=== PATIENT | female | born 1960 | race Caucasian/White ===

== ENCOUNTER 2016-12-01 12:16 | Emergency (ER) | payer OTHER ==
[~2016-12-01] VITALS: Ht 170.2 cm; Wt 77.1 kg
[2016-12-01 13:50] LABS: ABSOLUTE BASOPHIL COUNT 0.1 /CUMM (0.0-0.2); ABSOLUTE EOSINOPHIL COUNT 0.1 /CUMM (0.0-0.7); ABSOLUTE GRANULOCYTE CT 3.7 /CUMM (1.4-6.5); ABSOLUTE LYMPH COUNT 2.6 /CUMM (1.2-3.4); ABSOLUTE MONOCYTE COUNT 0.8 /CUMM (0.10-0.60); BASOPHIL % 0.7 % (0.0-2.0); EOSINOPHIL % 1.5 % (0-5); GRANULOCYTE % 50.2 % (42.2-75.2); HEMATOCRIT 47.8 % (37-47); MEAN CORPUSCULAR HGB CONC 32.7 G/DL (33.0-37.0); MEAN CORPUSCULAR VOLUME 91.8 FL (81.0-99.0); MEAN PLATELET VOLUME 7.3 FL (7.4-10.4); PLATELET COUNT 245 /CUMM (130-400); RBC DISTRIBUTION WIDTH 14.6 % (11.5-14.5); RED BLOOD CELL CT 5.21 /CUMM (4.20-5.40); WHITE BLOOD CELL COUNT 7.3 /CUMM (4.8-10.8)
--- NOTE | 2016-12-01 14:52 | RADIOLOGY REPORT ---
EXAMINATION: XR CHEST CLINICAL INFORMATION: Cough, wheezing and tachypnea. COMPARISON: None TECHNIQUE: 2 views of the chest were obtained. FINDINGS: Both lungs are fairly well-expanded and clear. The heart size and pulmonary vascularity is normal. No gross bony abnormality seen. IMPRESSION: Unremarkable chest exam.
[2016-12-01] MEDS ORDERED: ALBUTEROL2.5 MG/3 M IH (14:53)
[2016-12-01] MEDS ORDERED: VENTOLIN HFA18 GM IH (14:54)
[2016-12-01] MEDS ORDERED: FLOVENT HFA12 GM IH (14:55)
[2016-12-01] MEDS ORDERED: FOLGARD TABLET1 EACH PO (14:57)
--- NOTE | 2016-12-01 15:29 | ED GENERAL ADULT ---
History of Present Illness General Chief Complaint: Wheezing/Asthma Stated Complaint: ASTHMA Source: patient Exam Limitations: no limitations Vital Signs & Intake/Output Vital Signs & Intake/Output Vital Signs Date Time Temp Pulse Resp B/P B/P Pulse O2 O2 Flow FiO2 Mean Ox Delivery Rate 12/01 1755 80 18 144/88 98 12/01 1607 99 12/01 1532 98.1 79 36 136/71 100 Room Air 12/01 1333 96.4 84 28 130/74 99 Nasal 2.0L Cannula 12/01 1310 100 Nasal 2.0L Cannula 12/01 1245 99 Room Air 12/01 1218 96.5 72 18 126/87 98 Room Air Allergies Coded Allergies: No Known Allergies (12/01/16) Reconcile Medications Albuterol Sulfate 2.5 MG/3 ML (0.083 %) VIAL.NEB 2.5 MG IH 4 TIMES/DAY ASTHMA (Reported) Albuterol Sulfate (Ventolin Hfa) 90 MCG HFA.AER.AD 90 MCG IH 4XDP ASTHMA ( Reported) Fluticasone Propionate (Flovent Hfa) 220 MCG AER.W.ADAP 220 MCG IH 4XDP ASTHMA (Reported) Vit D3/Folic Acid/B2/B6/B12 (Folgard Tablet) 2,000-800 TABLET 1,000 MG PO DAILY VITAMIN (Reported) Triage Note: 55 Y/O FEMALE SENT BY PHYSICIAN [facility] FOR EVAL OF SOB/WHEEZING FOR 2-3 DAYS. PT STATES SHE WAS PLACED ON ANTIBIOTIC FOR SORE THROAT LAST WEEK; WOKE TODAY WITH WORSENING SOB. WHEEZING NOTED IN ALL CR, SAT 98% RA. PT REPORTS DRY COUGH. HAD PAOO NEB TX AT [facility] TODAY. Triage Nurses Notes Reviewed? yes HPI: 55 her old female the history of asthma presenting with shortness of breath and wheezing are sitting over the last 24 hours in the setting of preceding URI symptoms. Patient reports sore throat and nonproductive cough times 2-3 days. Denies fevers, rhinorrhea, nasal congestion, sick contacts. Recently seen at an urgent care with negative strep testing, however placed on empiric Augmentin until culture returns. Early on day 2 of Augmentin. Denies chest pain, lightheadedness, diaphoresis, nausea, vomiting. (GISELE LINARES,JAZMYN) Past History Travel History Traveled to [place] past 21 day No Medical History Any Pertinent Medical History? see below for history Neurological: NONE EENT: NONE Cardiovascular: NONE Respiratory: asthma Gastrointestinal: NONE Hepatic: NONE Renal: NONE Musculoskeletal: NONE Psychiatric: NONE Endocrine: NONE Blood Disorders: NONE Cancer(s): NONE SIZE TESTER/Reproductive: NONE Surgical History Surgical History: non-contributory Psychosocial History What is your primary language German Tobacco Use: Quit >30 days ago Family History Hx Contributory? No (JAZMYN JAQUEZ PA-C) Review of Systems Review of Systems Constitutional: Reports: no symptoms. EENTM: Reports: throat pain. Respiratory: Reports: cough, short of breath, wheezing. Denies: sputum production. Cardiovascular: Reports: no symptoms. GI: Reports: no symptoms. Genitourinary: Reports: no symptoms. Musculoskeletal: Reports: no symptoms. Neurological/Psychological: Reports: no symptoms. (JAZMYN JAQUEZ PA-C) Physical Exam Physical Exam General Appearance: well developed/nourished, anxious, moderate distress Head: atraumatic Ears, Nose, Throat: normal ENT inspection Respiratory: wheezing, there is diffuse wheezing throughout bilateral lung cr, with a prolonged expiratory phase, no hypoxia patient is satting 100% on room air, however tachypneic to mid 30s Cardiovascular: regular rate/rhythm, normal peripheral pulses Neurologic/Psych: awake, alert, oriented x 3 Skin: intact, normal color Core Measures ACS in differential dx? No CVA/TIA Diagnosis: No Severe Sepsis Present: No Septic Shock Present: No (JAZMYN JAQUEZ PA-C) Progress Differential Diagnoses I considered the following diagnoses in my evaluation of the patient: [Asthma exacerbation versus pneumonia versus bronchitis versus URI versus PE] Plan of Care: Orders Procedure Date/time Status BIPAP 12/01 1445 Active CONTINOUS NEBULIZER TX (1 HR) 12/01 1338 Complete THERAPIST ORDERS 12/01 1310 Complete PEAK FLOW MEASUREMENT (GEN) 12/01 1310 Complete MIXED VENOUS BLOOD GAS (GEN) 12/01 1256 Complete THROAT CULTURE W/QUICK STREP 12/01 1256 Active CBC WITHOUT DIFFERENTIAL 12/01 1256 Complete BASIC METABOLIC PANEL 12/01 1256 Complete Current Medications Sig/Stephen Start time Last Medication Dose Stop Time Status Admin Albuterol Sulfate 10 ML .[CONTINOUS] 12/01 1300 CAN (Proventil) Laboratory Tests 12/01/16 1310: Bicarbonate Actual 25, Mixed VBG pH 7.49 H, Mixed VBG pCO2 33 L, Mixed VBG O2 Saturation 38, Carboxyhemoglobin 0.9 L, O2 Concentration % 2L, O2 Delivery Method NC, Phlebotomy Draw Site VENOUS RAC 12/01/16 1306: Anion Gap 10, Estimated GFR > 60, BUN/Creatinine Ratio 23.3, Glucose 83, Calcium 9.4, CBC w Diff NO MAN DIFF REQ, RBC 5.21, MCV 91.8, MCH 30.0, RDW 14.6 H, MPV 7.3 L, Gran % 50.2, Lymphocytes % 36.3, Monocytes % 11.3 H, Eosinophils % 1.5, Basophils % 0.7, Absolute Granulocytes 3.7, Absolute Lymphocytes 2.6, Absolute Monocytes 0.8 H, Absolute Eosinophils 0.1, Absolute Basophils 0.1, PUBS MCHC 32.7 L Chest x-ray negative. Labs unremarkable. VBG shows normal pH with PCO2 33. Patient received continuous albuterol nebs at 10 mg per hour, 2 g of mag, 125 mg of Solu-Medrol. Wheezing has improved, patient still satting 100% on room air, tachypnea improved to 28-30. Will monitor and trial another albuterol treatment in 30 minutes. Plan to start BiPAP to admit if no improvement. Patient signed out to MADDY Berkowitz. (JAZMYN JAQUEZ PA-C) 12/01/2016 4:24:22 PM discussed the patient leave her x-ray lab results. Repeat evaluation lungs are clear to auscultation. Discussed with patient plan of care she's had Ativan before after having nervous breakdown but discussed with her plan of care we will give her a dose IV to see if that will attempt to help with her audible wheezing which appears to be more upper respiratory in nature case was discussed with Dr. Quiñones who agrees with plan Patient no longer wheezing after being medicated with Ativan 12/01/2016 5:50:23 PM patient is asking how much longer she needs to be here she reports a feeling improved will get oxygen ambulatory saturation as patient's O2 sats dropped immediately after being administered Ativan which she states she's had before she is currently 98% on room air Patient 98% walking on room air denies any shortness of breath she reports to feeling improved she has prednisone at home the patient was provided with name for government affairs specialist follow-up with return precautions were discussed patient relates she feels comfortable with plan. Patient has prescription for prednisone at home information is provided for follow-up with government affairs specialist (REECE MCCLOUD) Initial ED EKG: none (JAZMYN JAQUEZ PA-C) Departure Departure Disposition: STILL A PATIENT Condition: Stable Clinical Impression Primary Impression: Asthma exacerbation Departure Forms: Customer Survey General Discharge Information (JAZMYN JAQUEZ PA-C) Departure Time of Disposition: 1755 Additional Instructions: Take the prednisone that you were prescribed. Follow-up with your primary care physician as well as government affairs specialist dr walters this week, return to ER anytime sooner if any concerns. (REECE MCCLOUD) PA/SALES DEVELOPMENT ASSOCIATE Co-Sign Statement Statement: ED Attending supervision documentation- [X] I saw and evaluated the patient. I have also reviewed all the pertinent lab results and diagnostic results. I agree with the findings and the plan of care as documented in the PA's/SALES DEVELOPMENT ASSOCIATE's documentation. [] I have reviewed the ED Record and agree with the PA's/SALES DEVELOPMENT ASSOCIATE's documentation. [] Additions or exceptions (if any) to the PAs/SALES DEVELOPMENT ASSOCIATE's note and plan are summarized below: [] (SINDHU HAMMONDS,SERENITY Snyder) Critical Care Note Critical Care Note Critical Care Time: non-applicable (JAZMYN JAQUEZ PA-C) Critical Care Time: non-applicable (JAZMYN JAQUEZ PA-C)
[2016-12-01 17:55] VITALS: BP 144/88
== END 2016-12-01 18:15 ==
LOC: ERH 12:16
PROVIDERS: Physician Assistant
DX: J45.901 Unspecified asthma with (acute) exacerbation (principal); Z87.891 Personal history of nicotine dependence
CPT/HCPCS: 1263; 96374; 96375; J2930

== ENCOUNTER 2017-07-22 15:28 | Observation (INO) | payer OTHER ==
[~2017-07-22] VITALS: Ht 170.2 cm; Wt 71.7 kg
[~2017-07-22 15:28] MED LIST: ALBUTEROL2.5 MG/3 M IH; CYANOCOBAL1000 MCG/2 IM; DELTASONE20 MG PO; DOXYCYCLINE HY100 M4 PO; FLOVENT HFA12 GM IH; FOLGARD TABLET1 EACH PO; PREDNISONE10 M2 PO; TESSALON PERLE100 M1 PO; VENTOLIN HFA18 GM IH; VITAMIN B-121000 MC3 PO; VITAMIN D2000 UNIT PO; ZITHROMAX250 M2 PO
--- NOTE | 2017-07-22 16:54 | RADIOLOGY REPORT ---
EXAMINATION: XR CHEST CLINICAL INFORMATION: Asthma exacerbation rule out pneumonia. COMPARISON: Prior chest x-ray dated 07/17/2017. TECHNIQUE: Upright PA and lateral views of chest were obtained.. FINDINGS: The lung volumes are slightly decreased by comparison with the prior study with slight crowding of the central pulmonary structures. The lungs are clear bilaterally, with no focal areas of airspace opacification. The cardiomediastinal silhouette is not enlarged. There are no pleural effusions, there is no evidence of pneumothorax. Central pulmonary vasculature is within normal limits. The bony structures and overlying soft tissues are unremarkable. IMPRESSION: No acute cardiopulmonary findings. No significant interval change since the prior study dated 07/17/2017.
[2017-07-22 17:00] LABS: ABSOLUTE BASOPHIL COUNT 0 /CUMM (0.0-0.2); ABSOLUTE EOSINOPHIL COUNT 0 /CUMM (0.0-0.7); ABSOLUTE GRANULOCYTE CT 5.3 /CUMM (1.4-6.5); ABSOLUTE LYMPH COUNT 2.2 /CUMM (1.2-3.4); ABSOLUTE MONOCYTE COUNT 0.6 /CUMM (0.10-0.60); BASOPHIL % 0.1 % (0.0-2.0); EOSINOPHIL % 0 % (0-5); HEMATOCRIT 44.8 % (37-47); MEAN CORPUSCULAR HGB 30.4 PG (27.0-31.0); MEAN CORPUSCULAR VOLUME 91.8 FL (81.0-99.0); MEAN PLATELET VOLUME 6.9 FL (7.4-10.4); PLATELET COUNT 308 /CUMM (130-400); RBC DISTRIBUTION WIDTH 14.3 % (11.5-14.5); RED BLOOD CELL CT 4.88 /CUMM (4.20-5.40); WHITE BLOOD CELL COUNT 8.2 /CUMM (4.8-10.8)
[2017-07-22 17:04] LABS: GRANULOCYTE % 65.3 % (42.2-75.2)
--- NOTE | 2017-07-22 17:08 | ED DYSPNEA/ASTHMA COMPLAINT ---
History of Present Illness General Chief Complaint: Wheezing/Asthma Stated Complaint: "I HAVE ASTHMA" Source: patient, old records Exam Limitations: no limitations Vital Signs & Intake/Output Vital Signs & Intake/Output Vital Signs Date Time Temp Pulse Resp B/P B/P Pulse O2 O2 Flow FiO2 Mean Ox Delivery Rate 07/23 1029 Room Air Room Air 07/23 1029 96 Room Air Room Air 07/23 1006 98.4 63 20 142/69 96 Room Air 07/23 0821 97.5 65 20 155/76 98 Room Air 07/23 0636 97.9 65 18 136/71 100 Room Air / 0438 97.7 66 18 131/73 99 Room Air / 0056 97.9 64 18 126/71 100 Room Air 07/22 2320 97.5 73 20 140/86 97 Room Air 07/22 1846 96.0 72 22 137/76 98 Room Air 07/22 1610 99 02/05 1553 96.7 65 18 147/91 99 Room Air ED Intake and Output 07/23 0000 07/22 1200 Intake Total 0 Output Total 0 Balance 0 Intake, Oral 0 Output, Urine 0 Patient 158 lb Weight Weight Reported by Patient Measurement Method Allergies Coded Allergies: No Known Allergies (12/01/16) Reconcile Medications Albuterol Sulfate (Ventolin Hfa) 90 MCG HFA.AER.AD 90 MCG IH 4XDP ASTHMA ( Reported) Albuterol Sulfate 2.5 MG/3 ML (0.083 %) VIAL.NEB 2.5 MG IH 4 TIMES/DAY PRN ASTHMA (Reported) Azithromycin (Zithromax) 250 MG TABLET 1 DP PO AD bronchitis 2 the first day followed by 1 for days 2-5 Benzonatate (Tessalon Perle) 100 MG CAPSULE 1 CAP PO TID cough Cholecalciferol (Vitamin D3) (Vitamin D) (Unknown Strength) CAPSULE (Unknown Dose) PO DAILY SUPPLEMENT (Reported) Cyanocobalamin (Vitamin B-12) (Unknown Strength) TABLET (Unknown Dose) PO DAILY SUPPLEMENT (Reported) Cyanocobalamin (Vitamin B-12) (Cyanocobalamin Injection) 1,000 MCG/ML VIAL 1 ML IM Q30D SUPPLEMENT (Reported) Doxycycline Hyclate 100 MG TABLET 1 TAB PO BID bronchitis Prednisone (Deltasone) 20 MG TABLET 2 TAB PO ONCE DAILY BRONCHITIS Prednisone 10 MG TABLET 1 TAB PO DAILY bronchitis 4 tabs po x 3 days, 3 tabs po x 3 days, 2 tabs po x 3 days, 1 tab po x 3 days Prednisone (Deltasone) 20 MG TABLET 2 TAB PO DAILY bronchitis Triage Note: PT FROM HOME C/O WHEEZING/ASTHMA EXACERBATION. PT IN TRIAGE HAS AUDIBLE WHEEZING, SEEN AT [facility] ON SATURDAY AND TREATED WITH PREDNISONE X5 DAYS 40MG FOR BRONCHITIS. PT STATES SHE USED HER NEB TREATMENTS LAST NIGHT AND YESTERDAY ALONG WITH [facility] WITHOUT ANY RELIEF. PT IS 99% ON RA WITHOUT WORK OF BREATHING. Triage Nurses Notes Reviewed? yes Onset: Gradual Duration: day(s): Timing: recent history Severity: moderate HPI: 56-year-old female with history of asthma presents emergency department complaining of persistent cough, wheezing, shortness of breath x one week. Patient was seen and evaluated here on 07/17/17 for similar symptoms. At that time patient was informed she likely had bronchitis/asthma exacerbation and was started on prednisone and instructed to continue her home inhalers and nebulizers. Patient took full course of steroids and has been using nebulizers/ inhalers as prescribed however her symptoms are persistent. Patient states that she is now having bilateral back pain. Patient also reports episode of dizziness/ lightheadedness while at work today. Patient reports she has been feeling hot and cold however did not record a temperature. Patient denies chest pain, abdominal pain, nausea, vomiting. (Shelbi CASTAÑEDA,Georgia Rangel) Past History Travel History Traveled to [place] past 21 day No Medical History Any Pertinent Medical History? 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 No (Georgia Carrasco) Review of Systems Review of Systems Constitutional: Reports: see HPI. EENTM: Reports: see HPI. Respiratory: Reports: see HPI. Cardiovascular: Reports: no symptoms. GI: Reports: no symptoms. Genitourinary: Reports: no symptoms. Musculoskeletal: Reports: see HPI. Skin: Reports: no symptoms. Neurological/Psychological: Reports: see HPI. Hematologic/Endocrine: Reports: no symptoms. Immunologic/Allergic: Reports: no symptoms. All Other Systems: Reviewed and Negative (Georgia Carrasco) Physical Exam Physical Exam General Appearance: well developed/nourished, no apparent distress, alert, awake Head: atraumatic, normal appearance Eyes: Bilateral: normal appearance. Ears, Nose, Throat: hearing grossly normal Neck: normal inspection, supple, full range of motion Respiratory: diffuse inspiratory and expiratory wheezes through out Cardiovascular: regular rate/rhythm Peripheral Pulses: 2+ radial (R), 2+ radial (L) Gastrointestinal: normal bowel sounds, soft, non-tender, no organomegaly Extremities: normal inspection, normal range of motion Neurologic/Psych: awake, alert, oriented x 3 Skin: intact, normal color, warm/dry Core Measures ACS in differential dx? No CVA/TIA Diagnosis No Sepsis Present: No Sepsis Focused Exam Completed? No (Georgia Carrasco) Progress Differential Diagnosis: asthma, bronchitis, costochondritis, COPD, musculoskeletal pain, pulmonary embolism, pneumonia, pneumothorax Plan of Care: Orders Procedure Date/time Status Regular Diet 07/23 B Active RT: Reevaluation 07/23 1029 Active RT: Evaluation 07/23 1029 Active Change service to 07/23 07 Active Teach/Educate 07/23 601 Active Pain Treatment and Response 07/23 601 Active Nutritional Intake, Monitor 07/23 601 Active Isolation 07/23 06 Active Patient Care Conference 07/23 06 Active Activity/Ambulation 07/23 06 Active CBC WITHOUT DIFFERENTIAL 07/23 06 Complete BASIC ELECTROLYTES PLUS BUN&CR 07/23 06 Complete TRC EVALUATION (GEN) 07/23 0017 Complete Pathway - chart 07/23 0017 Active House Staff 07/23 0017 Active Patient Data 07/23 0017 Active Code Status 07/23 0017 Active THERAPIST ORDERS 07/23 UNK Complete Lab Add-on Test 07/23 UNK Active VTE Mechanical Prophylaxis 07/23 UNK Active Vital Signs 07/23 UNK Active Patient Data 07/[address] in observation 07/22 184 Active ED Holding Orders 07/22 1849 Active Vital Signs 07/22 184 Active Code Status 07/22 1849 Complete Intake & Output 07/22 1835 Active Add-on Test (ER Only) 07/22 1800 Active EKG 07/22 1800 Active TROPONIN LEVEL 07/22 1648 Complete B-TYPE NATRIURETIC PEP (BNP) 07/22 164 Complete COMPREHENSIVE METABOLIC PANEL 07/22 160 Complete CBC WITHOUT DIFFERENTIAL 07/22 160 Complete Current Medications Sig/Stephen Start time Last Medication Dose Stop Time Status Admin Albuterol Sulfate 3 ML EVERY 4 HRS/AWAKE 07/23 1600 AC (Proventil) Azithromycin 500 MG DAILY 07/23 1000 AC 07/23 (Zithromax) 1019 Dextrose/Water 250 ML (D5W) Enoxaparin Sodium 40 MG DAILY 07/23 1000 AC (Lovenox) Albuterol Sulfate 2 PUF Q4P PRN 07/23 0045 AC (Ventolin) Albuterol Sulfate 3 ML 4 TIMES/DAY PRN 07/23 0045 AC 07/23 (Proventil) 1026 Methylprednisolone 40 MG Q12 07/23 0030 AC 07/23 (Solumedrol) 1019 Acetaminophen 650 MG Q6P PRN 07/23 0015 AC (Tylenol) Ibuprofen 600 MG Q6P PRN 07/23 0015 AC (Motrin) Laboratory Tests 07/23/17605: Anion Gap 13, Estimated GFR > 60, BUN/Creatinine Ratio 28.0 H, CBC w Diff NO MAN DIFF REQ, RBC 4.59, MCV 91.9, MCH 30.6, MCHC 33.3, RDW 14.4, MPV 7.5, Gran % 84.5 H, Lymphocytes % 13.2 L, Monocytes % 2.3, Eosinophils % 0, Basophils % 0, Absolute Granulocytes 7.9 H, Absolute Lymphocytes 1.2, Absolute Monocytes 0.2, Absolute Eosinophils 0, Absolute Basophils 0 07/22/171647: Anion Gap 15, Estimated GFR > 60, BUN/Creatinine Ratio 30.0 H, Glucose 110 H, Calcium 10.1, Total Bilirubin 0.4, AST 12 L, ALT 29, Alkaline Phosphatase 95, Troponin I < 0.01, [id number] Pept 50.7, Total Protein 6.8, Albumin 4.4, Globulin 2.4, Albumin/Globulin Ratio 1.8, CBC w Diff NO MAN DIFF REQ, RBC 4.88, MCV 91.8, MCH 30.4, MCHC 33.0, RDW 14.3, MPV 6.9 L, Gran % 65.3, Lymphocytes % 27.2, Monocytes % 7.4, Eosinophils % 0, Basophils % 0.1, Absolute Granulocytes 5.3, Absolute Lymphocytes 2.2, Absolute Monocytes 0.6, Absolute Eosinophils 0, Absolute Basophils 0 Patient medicated with duoneb upon arrival to ED. patient has persistent wheezing despite DuoNeb. Patient has already had trial of outpatient steroids for asthma exacerbation however her symptoms have persisted. Spoke with Dr. Millard regarding this patient. He recommends observation for further IV doses of Solumedrol 40mg IV q8hrs. he will consult the patient tomorrow morning. Case management to advise. Patient was signed out to MADDY Segura pending EKG, case management consult. Diagnostic Imaging: Viewed by Me: Radiology Read. Discussed w/RAD: Radiology Read. CXR Impression: PATIENT: JACQUE HART PRESENT AGE : 56 PATIENT ACCOUNT NO: [id number] : 58 LOCATION: [facility] ORDERING PHYSICIAN: Georgia CASTAÑEDA SERVICE DATE: 07/22/17160 EXAM TYPE: RAD - XRY-CHEST XRAY, TWO VIEWS EXAMINATION: XR CHEST CLINICAL INFORMATION: Asthma exacerbation rule out pneumonia. COMPARISON: Prior chest x-ray dated 07/17/2017. TECHNIQUE: Upright PA and lateral views of chest were obtained.. FINDINGS: The lung volumes are slightly decreased by comparison with the prior study with slight crowding of the central pulmonary structures. The lungs are clear bilaterally, with no focal areas of airspace opacification. The cardiomediastinal silhouette is not enlarged. There are no pleural effusions, there is no evidence of pneumothorax. Central pulmonary vasculature is within normal limits. The bony structures and overlying soft tissues are unremarkable. IMPRESSION: No acute cardiopulmonary findings. No significant interval change since the prior study dated 07/17/2017. DICTATED BY: Lina Cadena MD DATE/ TIME DICTATED:07/22/171648 AVAYA ENGINEER:DEACON DATE/TIME TRANSCRIBED: 07/22/171648 CONFIDENTIAL, DO NOT COPY WITHOUT APPROPRIATE AUTHORIZATION. < Electronically signed in Other Vendor System> SIGNED BY: Lina Cadena MD 07/22/17 1655 Hand-Off Endorsed To: Denny Romo Endorsed Time: 1828 Pending: consult, EKG (case management) (Georgia Carrasco) Initial ED EKG: normal sinus rhythm, rate (63) (Denny Romo) Departure Departure Disposition: STILL A PATIENT Condition: Stable Clinical Impression Primary Impression: Asthma exacerbation Referrals: Marleni HAMMONDS,Hammad Martin (PCP/Family) Departure Forms: Customer Survey General Discharge Information Observation Note Physician Advisor Notified: RUSS HAMMONDS,CLEM [address] Patient In: Non-ED OBS Care Area Rationale for Observation: My rational for observation is as follows [acute asthma exacerbation not responding to oral steroids at home requiring IV steroids Q8 hours, pulmonology consult, respiratory therapy, premature discharge would be medically unsafe]. (Georgia Carrasco) Observation Note Spoke With: Luis Alfredo Vega MD (Denny Romo) PA/MUSIC INSTRUCTOR Co-Sign Statement Statement: ED Attending supervision documentation- [X] I saw and evaluated the patient. I have also reviewed all the pertinent lab results and diagnostic results. I agree with the findings and the plan of care as documented in the PA's/MUSIC INSTRUCTOR's documentation. [X] I have reviewed the ED Record and agree with the PA's/MUSIC INSTRUCTOR's documentation. [] Additions or exceptions (if any) to the PAs/MUSIC INSTRUCTOR's note and plan are summarized below: [] (Herb HAMMONDS,Carmela) Critical Care Note Critical Care Note Critical Care Time: non-applicable (Denny Romo)
--- NOTE | 2017-07-22 20:53 | History & Physical ---
See Addendum Jose L HAMMONDS,[facility] 07/22/172052: General Information and HPI MD Statement: I have seen and personally examined JACQUE PRINCE and documented this H&P. The patient is a 56 year old F who presented with a patient stated chief complaint of [shortness of breath]. Source of Information: patient Exam Limitations: no limitations History of Present Illness: 56-year-old female past medical history of asthma and recently quit smoking 5 years ago presenting for 5 days of shortness of breath and chest tightness. The patient states her symptoms have been getting progressively worse. She states that she has felt winded, tired, dizzy and has intermittent headaches. She also states that she is having chest tightness which radiates to the back which is new. She states that she continues to have a chronic cough which is unchanged from her baseline. She states that she last saw her research management associate on Saturday ( Dr. Millard) who increased her Breo for a two-week trial. Today the patient states that she called Dr. Millard who told her to go to the emergency department. The patient states that she has never been admitted for asthma. She states that she quit smoking 5 years ago but was a chronic on and off smoker and is unable to quantify the pack years. She states that she did not get a flu or pneumonia vaccine this year. She states that she does have sick contacts at work. She has also been complaining of intermittent chills, palpitations, nausea, and hot flashes. She denies any fevers, abdominal pain, vomiting, or lower extremity swelling. Allergies/Medications Allergies: Coded Allergies: No Known Allergies (12/01/16) Home Med list Albuterol Sulfate (Ventolin Hfa) 90 MCG HFA.AER.AD 90 MCG IH 4XDP ASTHMA ( Reported) Albuterol Sulfate 2.5 MG/3 ML (0.083 %) VIAL.NEB 2.5 MG IH 4 TIMES/DAY PRN ASTHMA (Reported) Azithromycin (Zithromax) 250 MG TABLET 1 DP PO AD bronchitis 2 the first day followed by 1 for days 2-5 Benzonatate (Tessalon Perle) 100 MG CAPSULE 1 CAP PO TID cough Cholecalciferol (Vitamin D3) (Vitamin D) (Unknown Strength) CAPSULE (Unknown Dose) PO DAILY SUPPLEMENT (Reported) Cyanocobalamin (Vitamin B-12) (Unknown Strength) TABLET (Unknown Dose) PO DAILY SUPPLEMENT (Reported) Cyanocobalamin (Vitamin B-12) (Cyanocobalamin Injection) 1,000 MCG/ML VIAL 1 ML IM Q30D SUPPLEMENT (Reported) Doxycycline Hyclate 100 MG TABLET 1 TAB PO BID bronchitis Prednisone (Deltasone) 20 MG TABLET 2 TAB PO ONCE DAILY BRONCHITIS Prednisone 10 MG TABLET 1 TAB PO DAILY bronchitis 4 tabs po x 3 days, 3 tabs po x 3 days, 2 tabs po x 3 days, 1 tab po x 3 days Prednisone (Deltasone) 20 MG TABLET 2 TAB PO DAILY bronchitis Past History Travel History Traveled to [place] past 21 day No Medical History Neurological: NONE EENT: NONE Cardiovascular: NONE Respiratory: asthma Gastrointestinal: NONE Hepatic: NONE Renal: NONE Musculoskeletal: NONE Psychiatric: NONE Endocrine: NONE Blood Disorders: NONE Cancer(s): NONE 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 Cardiovascular: Reports: palpitations. Denies: chest pain. Respiratory: Reports: cough, short of breath. GI: Reports: no symptoms. Genitourinary: Reports: no symptoms. Musculoskeletal: Reports: no symptoms. Neurological/Psychological: Reports: see HPI (dizziness), headache. Exam & Diagnostic Data Last 24 Hrs of Vital Signs/I&O Vital Signs Date Time Temp Pulse Resp B/P B/P Pulse O2 O2 Flow FiO2 Mean Ox Delivery Rate 07/23 0438 97.7 66 18 131/73 99 Room Air 07/23 0056 97.9 64 18 126/71 100 Room Air 07/22 2320 97.5 73 20 140/86 97 Room Air 07/22 1846 96.0 72 22 137/76 98 Room Air 07/22 1610 99 07/22 1553 96.7 65 18 147/91 99 Room Air Intake & Output 07/23 0800 07/23 0000 07/22 1600 Intake Total 0 Output Total 0 Balance 0 Intake, Oral 0 Output, Urine 0 Patient 158 lb Weight Weight Reported by Patient Measurement Method Physical Exam General Appearance Alert, Oriented X3, Cooperative, Mild Distress Skin Temp/Moisture Exam: Warm/Dry Neck no JVD Cardiovascular Regular Rate, Normal S1, Normal S2 Lungs inspiratory and expiratory wheezing, decreased air movement Abdomen Normal Bowel Sounds, Soft, No Tenderness Extremities no lower extremity edema Last 24 Hrs of Labs/Anupam: Laboratory Tests 07/22/17 1648: Anion Gap 15, Estimated GFR > 60, BUN/Creatinine Ratio 30.0 H, Glucose 110 H, Calcium 10.1, Total Bilirubin 0.4, AST 12 L, ALT 29, Alkaline Phosphatase 95, Troponin I < 0.01, Oaa-O-Iwkiovpvkdw Pept 50.7, Total Protein 6.8, Albumin 4.4, Globulin 2.4, Albumin/Globulin Ratio 1.8, CBC w Diff NO MAN DIFF REQ, RBC 4.88, MCV 91.8, MCH 30.4, MCHC 33.0, RDW 14.3, MPV 6.9 L, Gran % 65.3, Lymphocytes % 27.2, Monocytes % 7.4, Eosinophils % 0, Basophils % 0.1, Absolute Granulocytes 5.3, Absolute Lymphocytes 2.2, Absolute Monocytes 0.6, Absolute Eosinophils 0, Absolute Basophils 0 Assessment/Plan Assessment: A: 56-year-old female past medical history of asthma and recently quit smoking 5 years ago presenting for asthma exacerbation P: #asthma exacerbation Trop <.01 Rapid flu negative CXR:No acute cardiopulmonary finding -contact Dr. Millard -Continue TRC/nebs, azithromycin #Full code #DVT prophylaxis As Ranked By This Provider Problem List: 1. Asthma exacerbation Core Measures/Misc (03/03) Acute Coronary Syndrome ACS Diagnosis: No Congestive Heart Failure Congestive Heart Failure Diagnosis No Cerebrovascular Accident CVA/TIA Diagnosis: No VTE (View Protocol) VTE Risk Factors Acute Medical Illness No Mechanical VTE Prophylaxis d/t Other No VTE Pharm Prophylaxis d/t NA PharmProphylax ordered Sepsis (View protocol) Sepsis Present: Yes Mile Encarnacion MD 07/23/17 0904: Resident Review Statement Resident Statement: examined this patient, discussed with design intern, agreed with design intern Other Findings: Ms. Prince is 56 year old female with past medical history of asthma however patient didn't have any symptoms for a while and start recently in this year having multiple attacks, patient reported chief complain of shortness of breath for 5 days. Last asthma exacerbation was 2-3 months ago, patient follow with Dr. Millard who saw her Saturday last week before starting her symptoms, he noticed tightness and wheezing and also her to increase breo inhaler for 2 weeks. Patient came to ED on 07/17/17 and was treated with prednisone 40 mg for 4 days and inhalers, patient didn't feel any improvement and call Dr. Millard today who asked her to come to the ED for evaluation. She denied any fever, chills, nasal congestion, ear pain or nasal pain, any history of sick contact. Reported hot and cold feelings similar to hot flashes of note that patient had hysterectomy 5 years ago. Patient didn't receive flu or pneumonia vaccine this season for some reason. Patient denied any allergy to foods, medication, denied any exposure to animals, plants, molds. Problem list #Asthma exacerbation without eosinophiluria #Recent history of smoking quit 5 years ago with normal pulmonary function testing last year suggests COPD early stage #Bronchitis Plan -Admit to general medical floor -Vitals every shift -TRC -Continue home nebs and inhalers -Start Solu-Medrol 40 twice a day -Azithromycin daily IV -Lovenox DVT prophylaxis -Obtain proBNP as patient had mildly elevated JVD -Pulmonary consultation Code full Diet regular Luis Alfredo eVga 07/23/17 1005: Attending MD Review Statement Attending Statement Attending MD Statement: examined this patient, discuss w/resident/PA/PSYCH SPECIALIST, agreed w/resident/PA/PSYCH SPECIALIST, reviewed EMR data (avail), reviewed images, amended to note Attending Assessment/Plan: CC: Wheezing and shortness of breath PMH: COPD/asthma Patient came to ER for worsening cough, chest tightness, shortness of breath. Patient had been in ER multiple times for similar symptoms since May. In May she was prescribed prednisone and azithromycin with symptomatic improvement again symptoms recurred 5 days back, she called her research management associate who suggested to go to ER. In ER patient received a short course of prednisone. Even with this prednisone treatment her shortness of breath, chest tightness, cough is not getting better. Patient has been noticing wheezing, dry cough. Denies any upper respiratory symptoms, fever or chills, no known allergies, never was in ICU or intubated. In fact her asthma was well controlled until 1 year back when she started to have recurrent symptoms. She had significant smoking history. Vitals: Temperature 96.7, pulse 65, RR 18, blood pressure 147/91, saturating 99% on room air On exam: A O 3, cooperative, no acute distress, neck supple, JVD normal, no lymphadenopathy, mucosa moist, no focal neurological deficit, no dependent edema , no obvious skin rashes or inflammation CVS: S1-S2, RRR. RS: Wheezing bilaterally with prolonged expiration. Abdomen: Soft, NT, ND, bowel sounds present. Labs: WBC 8.2, hemoglobin 14.8, hematocrit 44.8, platelets 308, neutrophils 65%, sodium 143, potassium 4.5, chloride 98, bicarbonate 31, BUN 18, creatinine 0.6, glucose 110, calcium 10.1, LFT unremarkable, troponin less than 0.01, CXR:No acute cardiopulmonary findings. No significant interval change since the prior study dated 07/17/2017. Assessment and plan Patient was in ER on May 19, July 17 for similar complaints and was treated as mentioned above, symptoms still persisted with worsening shortness of breath, worsening cough and intermittent chest tightness with wheezing. There is no obvious JVD, leg swelling but patient has wheezing with prolonged expiration. No significant leukocytosis or evidence of pneumonia. Influenza negative on July 17. We will treat her COPD exacerbation as she failed outpatient treatment. Given her smoking history but appears more COPD than asthma. + COPD exacerbation -Place in observation on general medicine - IV methylprednisolone 40 mg every 12 hours - IV azithromycin - TRC nebulization with albuterol and ipratropium scheduled and when necessary - Mucinex scheduled twice a day - Inform research management associate about patient being here - Continue rest of the home medications - Adequate pain control - DVT prophylaxis
[2017-07-23 07:28] LABS: ABSOLUTE BASOPHIL COUNT 0 /CUMM (0.0-0.2); ABSOLUTE EOSINOPHIL COUNT 0 /CUMM (0.0-0.7); ABSOLUTE GRANULOCYTE CT 7.9 /CUMM (1.4-6.5); ABSOLUTE LYMPH COUNT 1.2 /CUMM (1.2-3.4); ABSOLUTE MONOCYTE COUNT 0.2 /CUMM (0.10-0.60); BASOPHIL % 0 % (0.0-2.0); EOSINOPHIL % 0 % (0-5); HEMATOCRIT 42.2 % (37-47); MEAN CORPUSCULAR HGB 30.6 PG (27.0-31.0); MEAN CORPUSCULAR HGB CONC 33.3 G/DL (33.0-37.0); MEAN CORPUSCULAR VOLUME 91.9 FL (81.0-99.0); MEAN PLATELET VOLUME 7.5 FL (7.4-10.4); PLATELET COUNT 277 /CUMM (130-400); RBC DISTRIBUTION WIDTH 14.4 % (11.5-14.5); RED BLOOD CELL CT 4.59 /CUMM (4.20-5.40); WHITE BLOOD CELL COUNT 9.4 /CUMM (4.8-10.8)
--- NOTE | 2017-07-23 07:37 | PN- Housestaff ---
Mandy HAMMONDS,Milagros 07/23/17 0737: Subjective Follow-up For: asthma exacerbation Subjective: patient is comfortable. not on oxygen and satting well. no distress, complaints, events. Review of Systems Constitutional: Reports: no symptoms. Cardiovascular: Reports: no symptoms. Respiratory: Reports: wheezing. Gastrointestinal: Reports: no symptoms. Genitourinary: Reports: no symptoms. Musculoskeletal: Reports: no symptoms. Objective Last 24 Hrs of Vital Signs/I&O Vital Signs Date Time Temp Pulse Resp B/P B/P Pulse O2 O2 Flow FiO2 Mean Ox Delivery Rate 07/23 220 98.1 70 20 120/80 98 / 1825 96 Room Air / 1744 97.6 67 16 129/67 98 Room Air 07/23 1741 97.6 67 16 129/67 98 Room Air / 1530 98.8 64 16 136/63 98 Room Air / 1259 97.2 74 18 128/60 97 Room Air 07/23 1029 Room Air Room Air 07/23 1029 96 Room Air Room Air 07/23 1006 98.4 63 20 142/69 96 Room Air / 0821 97.5 65 20 155/76 98 Room Air 02/ 0636 97.9 65 18 136/71 100 Room Air 02/ 0438 97.7 66 18 131/73 99 Room Air / 0056 97.9 64 18 126/71 100 Room Air 02/05 2320 97.5 73 20 140/86 97 Room Air Intake & Output 07/23 1600 07/23 0800 02/ 0000 Intake Total 250 0 Output Total 0 Balance 250 0 Intake, IV 250 Intake, Oral 0 0 Output, Urine 0 Patient 158 lb Weight Physical Exam General Appearance: Alert, Oriented X3, Cooperative Skin: No Rashes Skin Temp/Moisture Exam: Warm/Dry Cardiovascular: Regular Rate, Normal S1, Normal S2, No Murmurs Lungs: wheezing throughout mild to moderate Abdomen: Normal Bowel Sounds, Soft, No Tenderness, No Hepatospenomegaly Current Medications: Current Medications Sig/Stephen Start time Last Medication Dose Route Stop Time Status Admin Acetaminophen 650 MG Q6P PRN 07/23 0015 AC PO Albuterol Sulfate 3 ML EVERY 4 HRS/AWAKE 07/23 1600 AC 07/23 INH 2208 Albuterol Sulfate 2 PUF Q4P PRN 07/23 0045 AC INH Albuterol Sulfate 3 ML 4 TIMES/DAY PRN 07/23 0045 AC 07/23 INH 1026 Albuterol Sulfate 3 ML ONCE ONE 07/23 0015 DC 07/23 INH 07/23 15 0008 Azithromycin 500 MG DAILY 07/23 1000 AC 07/23 Dextrose/Water 250 ML IV 1019 Enoxaparin Sodium 40 MG DAILY 07/23 1000 AC SC Ibuprofen 600 MG Q6P PRN 07/23 0015 AC PO Methylprednisolone 0 .STK-MED ONE 07/23 0036 DC .ROUTE Methylprednisolone 40 MG Q12 07/23 0030 AC 07/23 IV 2154 Last 24 Hrs of Lab/Anupam Results Last 24 Hrs of Labs/Mics: Laboratory Tests 07/23/17605: Anion Gap 13, Estimated GFR > 60, BUN/Creatinine Ratio 28.0 H, CBC w Diff NO MAN DIFF REQ, RBC 4.59, MCV 91.9, MCH 30.6, MCHC 33.3, RDW 14.4, MPV 7.5, Gran % 84.5 H, Lymphocytes % 13.2 L, Monocytes % 2.3, Eosinophils % 0, Basophils % 0, Absolute Granulocytes 7.9 H, Absolute Lymphocytes 1.2, Absolute Monocytes 0.2, Absolute Eosinophils 0, Absolute Basophils 0 Assessment/Plan Assessment: A: 56-year-old female past medical history of asthma and recently quit smoking 5 years ago presenting for asthma exacerbation as per the direction of her mold runner Dr. Millard. No WBC count, no fever. She is placed in observation on general medicine for dosing of steroids IV with transition tomorrow to PO and probable discharge. P: #asthma exacerbation Trop <.01 Rapid flu negative CXR:No acute cardiopulmonary finding -consult with mold runner Dr. Millard. -Continue TRC/nebs, azithromycin #Full code #DVT prophylaxis Problem List: 1. Asthma exacerbation Pain Ratin Pain Location: na Pain Goal: Remain pain free Pain Plan: prn Tomorrow's Labs & Rationales: none Phyllis Collins 07/23/17 1127: Attending MD Review Statement Attending Statement Attending MD Statement: examined this patient, discuss w/resident/PA/GATE SHEAR OPERATOR, agreed w/resident/PA/GATE SHEAR OPERATOR, discussed with family, reviewed EMR data (avail), discussed with nursing, discussed with case mgmt, reviewed images, amended to note Attending Assessment/Plan: Patient seen/examined bedside. Patient denies any new compliants. B/l wheezing+, no use of accessory muscles, can speak in full sentences. 97% on RA. Assessment 1. COPD exacerbation - Place in observation on general medicine - IV methylprednisolone 40 mg every 12 hours, taper steroids as per pulm. - IV azithromycin - TRC nebulization with albuterol and ipratropium scheduled and when necessary. - f/u pulmonolgist. - Continue rest of the home medications. - Adequate pain control. - DVT prophylaxis. - anticipate dc tomorrow.
[2017-07-23 08:56] LABS: GRANULOCYTE % 84.5 % (42.2-75.2)
--- NOTE | 2017-07-23 12:22 | Cons- Pulmonary ---
See Addendum General Information and HPI Consulting Request Date of Consult: 07/23/17 Requested By: Dr. Collins Reason for Consult: dyspnea Source of Information: patient History of Present Illness: 56 year old woman. Hx of Asthma. Recent ashtma flair. Required steroids, then had ED visit 07/17. Returned yesterday for persistent wheezing. Feeling somewhat better, but not back to respiratory baseline. Former smoker quit 2011. CXR without infiltrates. No leukocytosis. On BREO at home. Ventolin/Alubterol. No n/v/d/c. No cp, no coreas, no travel hx, no obvious sick contacts, no hemoptysis, cough is dry. Allergies/Medications Allergies: Coded Allergies: No Known Allergies (12/01/16) Home Med List: Albuterol Sulfate (Ventolin Hfa) 90 MCG HFA.AER.AD 90 MCG IH 4XDP ASTHMA ( Reported) Albuterol Sulfate 2.5 MG/3 ML (0.083 %) VIAL.NEB 2.5 MG IH 4 TIMES/DAY PRN ASTHMA (Reported) Azithromycin (Zithromax) 250 MG TABLET 1 DP PO AD bronchitis 2 the first day followed by 1 for days 2-5 Benzonatate (Tessalon Perle) 100 MG CAPSULE 1 CAP PO TID cough Cholecalciferol (Vitamin D3) (Vitamin D) (Unknown Strength) CAPSULE (Unknown Dose) PO DAILY SUPPLEMENT (Reported) Cyanocobalamin (Vitamin B-12) (Unknown Strength) TABLET (Unknown Dose) PO DAILY SUPPLEMENT (Reported) Cyanocobalamin (Vitamin B-12) (Cyanocobalamin Injection) 1,000 MCG/ML VIAL 1 ML IM Q30D SUPPLEMENT (Reported) Doxycycline Hyclate 100 MG TABLET 1 TAB PO BID bronchitis Prednisone (Deltasone) 20 MG TABLET 2 TAB PO ONCE DAILY BRONCHITIS Prednisone 10 MG TABLET 1 TAB PO DAILY bronchitis 4 tabs po x 3 days, 3 tabs po x 3 days, 2 tabs po x 3 days, 1 tab po x 3 days Prednisone (Deltasone) 20 MG TABLET 2 TAB PO DAILY bronchitis Current Medications: Current Medications Sig/Stephen Start time Last Medication Dose Route Stop Time Status Admin Acetaminophen 650 MG Q6P PRN 07/23 0015 AC PO Albuterol Sulfate 3 ML EVERY 4 HRS/AWAKE 07/23 1600 AC INH Albuterol Sulfate 2 PUF Q4P PRN 07/23 0045 AC INH Albuterol Sulfate 3 ML 4 TIMES/DAY PRN 07/23 0045 AC 07/23 INH 1026 Albuterol Sulfate 3 ML ONCE ONE 07/23 0015 DC 07/23 INH 07/23 0016 0008 Albuterol Sulfate 3 ML ONCE ONE 07/22 1615 DC 07/22 INH 07/22 1616 1610 Albuterol Sulfate 0 .STK-MED ONE 07/22 1609 DC INH Azithromycin 500 MG DAILY 07/23 1000 AC 07/23 Dextrose/Water 250 ML IV 1019 Enoxaparin Sodium 40 MG DAILY 07/23 1000 AC SC Ibuprofen 600 MG Q6P PRN 07/23 0015 AC PO Ipratropium [place] 2.5 ML ONCE ONE 07/22 1615 DC 07/22 INH 07/22 161 1610 Methylprednisolone 0 .STK-MED ONE 07/23 0036 DC .ROUTE Methylprednisolone 40 MG Q12 07/23 0030 AC 07/23 IV 1019 Methylprednisolone 0 .STK-MED ONE 07/22 1639 DC .ROUTE Methylprednisolone 125 MG ONCE ONE 07/22 1615 DC / IV 07/22 1616 1639 Review of Systems Comments 18 point review of systems was performed and reviewed. Please see pertinent positives and pertinent negatives in the HPI. Otherwise ROS is negative. 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 Surgical History Surgical History: hysterectomy, X3, spinal fusion, Family History Relations & Conditions If Any: Relation not specified for: *No pertinent family history Psychosocial History Smoking Status: Former Smoker ETOH Use: denies use Illicit Drug Use: denies illicit drug use Exam & Diagnostic Data Last 24 Hrs of Vital Signs/I&O Vital Signs Date Time Temp Pulse Resp B/P B/P Pulse O2 O2 Flow FiO2 Mean Ox Delivery Rate 07/23 1029 Room Air Room Air 07/23 1029 96 Room Air Room Air 07/23 1006 98.4 63 20 142/69 96 Room Air 07/23 0821 97.5 65 20 155/76 98 Room Air 07/23 0636 97.9 65 18 136/71 100 Room Air 07/23 0438 97.7 66 18 131/73 99 Room Air 07/23 0056 97.9 64 18 126/71 100 Room Air 07/22 2320 97.5 73 20 140/86 97 Room Air 07/22 1846 96.0 72 22 137/76 98 Room Air 07/22 1610 99 07/22 1553 96.7 65 18 147/91 99 Room Air Intake & Output 07/23 1600 07/23 0800 07/23 0000 Intake Total 0 Output Total 0 Balance 0 Intake, Oral 0 Output, Urine 0 Patient 158 lb Weight Physical Exam Other Physical Findings: Generally - Awake, alert Head and neck - normocephalic, atraumatic, EOMI grossly intact Cardiovascular - S1, S2, no murmurs, rubs or gallops Lungs - bilateral wheezing Abdomen - Bowel sounds positive, soft, non-tender Extremities - without edema Last 48 Hrs of Labs/Anupam: Laboratory Tests 07/23/17 0606: Anion Gap 13, Estimated GFR > 60, BUN/Creatinine Ratio 28.0 H, CBC w Diff NO MAN DIFF REQ, RBC 4.59, MCV 91.9, MCH 30.6, MCHC 33.3, RDW 14.4, MPV 7.5, Gran % 84.5 H, Lymphocytes % 13.2 L, Monocytes % 2.3, Eosinophils % 0, Basophils % 0, Absolute Granulocytes 7.9 H, Absolute Lymphocytes 1.2, Absolute Monocytes 0.2, Absolute Eosinophils 0, Absolute Basophils 0 07/22/17 1648: Anion Gap 15, Estimated GFR > 60, BUN/Creatinine Ratio 30.0 H, Glucose 110 H, Calcium 10.1, Total Bilirubin 0.4, AST 12 L, ALT 29, Alkaline Phosphatase 95, Troponin I < 0.01, Grm-O-Phwchyjzajy Pept 50.7, Total Protein 6.8, Albumin 4.4, Globulin 2.4, Albumin/Globulin Ratio 1.8, CBC w Diff NO MAN DIFF REQ, RBC 4.88, MCV 91.8, MCH 30.4, MCHC 33.0, RDW 14.3, MPV 6.9 L, Gran % 65.3, Lymphocytes % 27.2, Monocytes % 7.4, Eosinophils % 0, Basophils % 0.1, Absolute Granulocytes 5.3, Absolute Lymphocytes 2.2, Absolute Monocytes 0.6, Absolute Eosinophils 0, Absolute Basophils 0 Assessment/Plan Impression/Plan: Impression 56 year old woman. Hx of Asthma. Recent ashtma flair. Required steroids, then had ED visit 07/17. Returned yesterday for persistent wheezing. Feeling somewhat better, but not back to respiratory baseline. Former smoker quit 2011. CXR without infiltrates. No leukocytosis. On BREO at home. Ventolin/Alubterol. No n/v/d/c. No cp, no coreas, no travel hx, no obvious sick contacts, no hemoptysis, cough is dry. Plan -solumedrol 40mg iv q12 -trc/nebs -dc planning within 24 hrs if improves -zihtromax DVT prophylaxis at all times Consult Acknowledgment - Thank you for your consult request.
[2017-07-23 17:41] VITALS: BP 129/67
[2017-07-23 17:44] VITALS: BP 129/67
[2017-07-23 22:05] VITALS: BP 120/80
--- NOTE | 2017-07-23 22:54 | Patient Discharge Instructions ---
Discharge Instructions General Discharge Information You were seen/treated for: ASTHMA EXACERBATION Special Instructions: 1. PLEASE SEE PCP IN ONE WEEK 2. PLEASE SEE YOUR FLOUR WORKER IN ONE WEEK Diet Continue normal diet: Yes Activity Full Activity/No Limits: Yes Acute Coronary Syndrome Inclusion Criteria At DC or during hospital stay patient has or had the following: ACS DIAGNOSIS No Discharge Core Measures Meds if any: Prescribed or Continued at Discharge Meds if any: NOT Prescribed or Continued at Discharge Congestive Heart Failure Inclusion Criteria At DC or during hospital stay patient has or had the following: CHF DIAGNOSIS No Discharge Core Measures Meds if any: Prescribed or Continued at Discharge Meds if any: NOT Prescribed or Continued at Discharge Cerebrovascular accident Inclusion Criteria At DC or during hospital stay patient has or had the following: CVA/TIA Diagnosis No Discharge Core Measures Meds if any: Prescribed or Continued at Discharge Meds if any: NOT Prescribed or Continued at Discharge Venous thromboembolism Inclusion Criteria VTE Diagnosis No VTE Type NONE VTE Confirmed by (Test) NONE Discharge Core Measures - Per Current guidelines, there needs to be overlap - treatment for the first 5 days of Warfarin therapy. - If discharged on Warfarin prior to 5 days of - overlap therapy, the patient will need to be - assessed for post discharge needs including - *Post discharge parental anticoagulation - *Warfarin and/or parental anticoagulation education - *Follow up date to check INR post discharge At least 5 days overlap therapy as Inpatient No Meds if any: Prescribed or Continued at Discharge Note: Overlap Therapy is Warfarin and Anticoagulant Meds if any: NOT Prescribed or Continued at Discharge
[2017-07-24] MEDS ORDERED: ZITHROMAX250 M2 PO (07:23)
[2017-07-24 07:45] VITALS: BP 124/78
--- NOTE | 2017-07-24 07:48 | PN- Housestaff ---
Mandy HAMMONDS,Milagros 07/24/17 0747: Subjective Follow-up For: asthma exacerbation Subjective: patient continues to have chest tightness and the feeling of being short of breath despite good saturations. no other complaints no event. Review of Systems Constitutional: Reports: no symptoms. Cardiovascular: Reports: see HPI. Respiratory: Reports: short of breath. Objective Last 24 Hrs of Vital Signs/I&O Vital Signs Date Time Temp Pulse Resp B/P B/P Pulse O2 O2 Flow FiO2 Mean Ox Delivery Rate 07/24 1439 98.0 80 20 120/70 96 07/24 0846 96 Room Air 07/24 0745 97.9 967 20 124/78 97 Room Air 07/23 2205 98.1 70 20 120/80 98 07/23 1825 96 Room Air 07/23 1744 97.6 67 16 129/67 98 Room Air 07/23 1741 97.6 67 16 129/67 98 Room Air 07/23 1530 98.8 64 16 136/63 98 Room Air Intake & Output 07/24 1600 07/24 0800 07/24 0000 Intake Total 1090 200 300 Output Total Balance 1090 200 300 Intake, IV 290 Intake, Oral 800 200 300 Physical Exam General Appearance: Alert, Oriented X3, Cooperative, No Acute Distress Skin: No Rashes, No Breakdown, No Significant Lesion HEENT: Atraumatic Cardiovascular: Regular Rate, Normal S1, Normal S2, No Murmurs Lungs: mild wheezes Abdomen: Normal Bowel Sounds, Soft, No Tenderness Current Medications: Current Medications Sig/Stephen Start time Last Medication Dose Route Stop Time Status Admin Acetaminophen 650 MG Q6P PRN 07/23 0015 AC PO Albuterol Sulfate 3 ML EVERY 4 HRS/AWAKE 07/23 1600 AC 07/24 INH 1235 Albuterol Sulfate 2 PUF Q4P PRN 07/23 0045 AC INH Albuterol Sulfate 3 ML 4 TIMES/DAY PRN 07/23 0045 AC 07/23 INH 1026 Azithromycin 500 MG DAILY 07/23 1000 AC 07/24 Dextrose/Water 250 ML IV 1127 Enoxaparin Sodium 40 MG DAILY 07/23 1000 AC SC Ibuprofen 600 MG Q6P PRN 07/23 0015 AC PO Methylprednisolone 40 MG Q12 07/23 0030 AC 07/24 IV 1125 Assessment/Plan Assessment: A: 56-year-old female past medical history of asthma and recently quit smoking 5 years ago presenting for asthma exacerbation as per the 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 Millard. No WBC count, no fever. She is placed in observation on general medicine for dosing of steroids IV with transition tomorrow to PO and probable discharge. P: #asthma exacerbation Trop <.01 Rapid flu negative CXR:No acute cardiopulmonary finding -consult with warehouse forklift operator Dr. Millard. -Continue TRC/nebs, azithromycin -do ambulatory sats before she goes as patient is worried about her saturations on movement. #Full code #DVT prophylaxis Problem List: 1. Asthma exacerbation Pain Ratin Pain Location: na Pain Goal: Remain pain free Pain Plan: prn Tomorrow's Labs & Rationales: none Phyllis Collins 07/24/17 1356: Attending MD Review Statement Attending Statement Attending MD Statement: examined this patient, discuss w/resident/PA/SPORTS COMMENTATOR, agreed w/resident/PA/SPORTS COMMENTATOR, discussed with family, reviewed EMR data (avail), discussed with nursing, discussed with case mgmt, reviewed images, amended to note Attending Assessment/Plan: Patient seen/examined bedside. Patient denies any new compliants. B/l wheezing+. COPD exacerbation - Continue observation - IV methylprednisolone 40 mg every 12 hours, taper steroids as per pulm. - IV azithromycin - TRC nebulization with albuterol and ipratropium scheduled and when necessary. - f/u pulmonolgist. - Continue rest of the home medications. - Adequate pain control. - DVT prophylaxis. - anticipate dc soon.
--- NOTE | 2017-07-24 11:11 | PN- Pulmonary ---
Subjective HPI/Critical Care Issues: Patient seen and examined this morning. She is still short of breath with exertion however improving overall. Objective Current Medications: Current Medications Sig/Stephen Start time Last Medication Dose Route Stop Time Status Admin Acetaminophen 650 MG Q6P PRN 07/23 0015 AC PO Albuterol Sulfate 3 ML EVERY 4 HRS/AWAKE 07/23 1600 AC 07/24 INH 0845 Albuterol Sulfate 2 PUF Q4P PRN 07/23 0045 AC INH Albuterol Sulfate 3 ML 4 TIMES/DAY PRN 07/23 0045 AC 07/23 INH 1026 Azithromycin 500 MG DAILY 07/23 1000 AC 07/23 Dextrose/Water 250 ML IV 1019 Enoxaparin Sodium 40 MG DAILY 07/23 1000 AC SC Ibuprofen 600 MG Q6P PRN 07/23 0015 AC PO Methylprednisolone 40 MG Q12 07/23 0030 AC 07/23 IV 2154 Vital Signs & I&O Last 24 Hrs of Vitals and I&O: Vital Signs Date Time Temp Pulse Resp B/P B/P Pulse O2 O2 Flow FiO2 Mean Ox Delivery Rate 07/24 0846 96 Room Air 07/24 0745 97.9 967 20 124/78 97 Room Air / 2205 98.1 70 20 120/80 98 / 1825 96 Room Air / 1744 97.6 67 16 129/67 98 Room Air / 1741 97.6 67 16 129/67 98 Room Air / 1530 98.8 64 16 136/63 98 Room Air / 1259 97.2 74 18 128/60 97 Room Air Intake & Output 07/24 1600 07/24 0800 02 0000 Intake Total 200 300 Output Total Balance 200 300 Intake, Oral 200 300 Exam Other Physical Findings: Generally - Awake, alert Head and neck - normocephalic, atraumatic, EOMI grossly intact Cardiovascular - S1, S2, no murmurs, rubs or gallops Lungs - bilateral wheezing significantly improved Abdomen - Bowel sounds positive, soft, non-tender Extremities - without edema Impression/Plan Impression/Plan Impression/Plan: Impression 56 year old woman. Hx of Asthma, now with acute exacerbation Plan -solumedrol 40mg iv q12, plan for dc tomorrow if no events - would taper to po prednisone tomorrow (60mg) -trc/nebs -dc planning within 24 hrs if improves -zihtromax DVT prophylaxis at all times
[2017-07-24 14:39] VITALS: BP 120/70
[2017-07-24 20:33] VITALS: BP 120/70
[2017-07-24 22:32] VITALS: BP 120/70
[2017-07-25 07:33] VITALS: BP 112/76
--- NOTE | 2017-07-25 08:15 | PN- Housestaff ---
Mandy HAMMONDS,Milagros 07/25/17 0815: Subjective Follow-up For: ashtma exacerbation Subjective: patient is feeling good, no complaints. Review of Systems Constitutional: Reports: no symptoms. Objective Last 24 Hrs of Vital Signs/I&O Vital Signs Date Time Temp Pulse Resp B/P B/P Pulse O2 O2 Flow FiO2 Mean Ox Delivery Rate 07/25 0835 98 Room Air Room Air 07/25 0733 98.0 71 20 112/76 95 Room Air 07/24 2232 98.1 92 18 120/70 96 Room Air Intake & Output 07/25 1600 07/25 0800 07/25 0000 Intake Total 490 260 Output Total Balance 490 260 Intake, IV 10 20 Intake, Oral 480 240 Physical Exam General Appearance: Alert, Oriented X3, Cooperative, No Acute Distress Skin: No Rashes Cardiovascular: Regular Rate, Normal S1, Normal S2, No Murmurs Lungs: Clear to Auscultation, Normal Air Movement Abdomen: Normal Bowel Sounds, Soft, No Tenderness Neurological: Normal Speech Current Medications: Current Medications Sig/Stephen Start time Last Medication Dose Route Stop Time Status Admin Acetaminophen 650 MG Q6P PRN 07/23 0015 DCD PO Albuterol Sulfate 3 ML EVERY 4 HRS/AWAKE 07/23 1600 DCD 07/25 INH 1142 Albuterol Sulfate 2 PUF Q4P PRN 07/23 0045 DCD INH Albuterol Sulfate 3 ML 4 TIMES/DAY PRN 07/23 0045 DCD 07/23 INH 1026 Azithromycin 500 MG DAILY 07/23 1000 DCD 07/25 Dextrose/Water 250 ML IV 0914 Enoxaparin Sodium 40 MG DAILY 07/23 1000 DCD SC Ibuprofen 600 MG Q6P PRN 07/23 0015 DCD PO Methylprednisolone 40 MG DAILY 07/25 1000 DCD / IV 0904 Assessment/Plan Assessment: A: 56-year-old female past medical history of asthma and recently quit smoking 5 years ago presenting for asthma exacerbation as per the direction of her lan support specialist Dr. Millard. No WBC count, no fever. She is placed in observation on general medicine for dosing of steroids IV with transition TODAY to PO and probable discharge P: #asthma exacerbation Trop <.01 Rapid flu negative CXR:No acute cardiopulmonary finding -consult with lan support specialist Dr. Millard. -Continue TRC/nebs, azithromycin on 60 FOR 2 DAYS 50 FOR 2 40 FOR 2 AND SO ON UNTIL 10 FOR 2 AND THEN STOPPED #Full code #DVT prophylaxis Problem List: 1. Asthma exacerbation Pain Ratin Pain Location: na Pain Goal: Remain pain free Pain Plan: na Tomorrow's Labs & Rationales: none Phyllis Collins 07/25/17 1221: Attending MD Review Statement Attending Statement Attending MD Statement: examined this patient, discuss w/resident/PA/STEP DOWN NURSE, agreed w/resident/PA/STEP DOWN NURSE, discussed with family, reviewed EMR data (avail), discussed with nursing, discussed with case mgmt, reviewed images, amended to note Attending Assessment/Plan: Patient seen/examined bedside. Patient deneis any new complaints. Patient is feeling much better. Patient advised to continue taper steroids, bronchodiators, z jose and follow outpatient pulmonary in [address] Millard.
[2017-07-25] MEDS ORDERED: PREDNISONE10 M2 PO (11:49)
--- NOTE | 2017-07-25 12:04 | PN- Pulmonary ---
Subjective HPI/Critical Care Issues: Patient seen and examined. She is feeling better however still some wheezing. Objective Current Medications: Current Medications Sig/Stephen Start time Last Medication Dose Route Stop Time Status Admin Acetaminophen 650 MG Q6P PRN 07/23 0015 AC PO Albuterol Sulfate 3 ML EVERY 4 HRS/AWAKE 07/23 1600 AC 07/25 INH 1142 Albuterol Sulfate 2 PUF Q4P PRN 07/23 0045 AC INH Albuterol Sulfate 3 ML 4 TIMES/DAY PRN 07/23 0045 AC 07/23 INH 1026 Azithromycin 500 MG DAILY 07/23 1000 AC 07/25 Dextrose/Water 250 ML IV 0914 Enoxaparin Sodium 40 MG DAILY 07/23 1000 AC SC Ibuprofen 600 MG Q6P PRN 07/23 0015 AC PO Methylprednisolone 40 MG DAILY 07/25 1000 AC 07/25 IV 0904 Methylprednisolone 40 MG Q12 07/23 0030 DC 07/24 IV 2129 Vital Signs & I&O Last 24 Hrs of Vitals and I&O: Vital Signs Date Time Temp Pulse Resp B/P B/P Pulse O2 O2 Flow FiO2 Mean Ox Delivery Rate 07/25 0835 98 Room Air Room Air 07/25 0733 98.0 71 20 112/76 95 Room Air / 2232 98.1 92 18 120/70 96 Room Air / 2033 98.1 92 18 120/70 96 Room Air 07/24 1604 95 Room Air Room Air 07/24 1600 Room Air / 1439 98.0 80 20 120/70 96 Intake & Output 07/25 1600 08 0800 08 0000 Intake Total 490 260 Output Total Balance 490 260 Intake, IV 10 20 Intake, Oral 480 240 Exam Other Physical Findings: Generally - Awake, alert Head and neck - normocephalic, atraumatic, EOMI grossly intact Cardiovascular - S1, S2, no murmurs, rubs or gallops Lungs - bilateral wheezing significantly improved Abdomen - Bowel sounds positive, soft, non-tender Extremities - without edema Impression/Plan Impression/Plan Impression/Plan: Impression 56 year old woman. Hx of Asthma, now with acute exacerbation Plan -dc solumedrol -prednisone 60x2, 50x2, 40x2, 30x2, 20x2, 10x2 then stop -to see me within 2 weeks of dc -trc/nebs -zpak ready for dc DVT prophylaxis at all times
--- NOTE | 2017-07-25 12:11 | Discharge Summary ---
Hospital Course Allergies: Coded Allergies: No Known Allergies (12/01/16) Discharge Instructions Medications at Discharge Discharge Medications: Stop taking the following medications: Cyanocobalamin (Vitamin B-12) (Unknown Strength) TABLET ORAL DAILY Doxycycline Hyclate (Doxycycline Hyclate) 100 MG TABLET ORAL TWICE DAILY Qty = 14 Prednisone (Deltasone) 20 MG TABLET ORAL ONCE DAILY Qty = 10 Prednisone (Prednisone) 10 MG TABLET ORAL DAILY Qty = 30 Continue taking these medications: Albuterol Sulfate (Albuterol Sulfate) 2.5 MG/3 ML (0.083 %) VIAL.NEB 2.5 Milligram INHALATION 4 TIMES A DAY as needed for ASTHMA Qty = 75 Comments: LAST TAKEN: 07/23/17 @ 10 AM Albuterol Sulfate (Ventolin Hfa) 90 MCG HFA.AER.AD 90 Microgram INHALATION 4 times daily as needed Qty = 18 Comments: NOT TAKEN IN HOSPITAL Cyanocobalamin (Vitamin B-12) (Cyanocobalamin Injection) 1,000 MCG/ML VIAL 1 Milliliters INTRAMUSC ONCE A MONTH Comments: NOT TAKEN IN HOSPITAL Cholecalciferol (Vitamin D3) (Vitamin D) (Unknown Strength) CAPSULE Unknown Dose ORAL DAILY Comments: NOT TAKEN IN HOSPITAL Benzonatate (Tessalon Perle) 100 MG CAPSULE 1 Capsule ORAL THREE TIMES DAILY Qty = 30 Comments: NOT TAKEN IN HOSPITAL Start taking the following new medications: Prednisone (Prednisone) 10 MG TABLET 1 Tablet ORAL SEE INSTRUCTIONS Qty = 42 No Refills Instructions: take 6 tabs daily for 2 days 07/26-07/27 take 5 tabs daily for the next 2 days 07/28-07/29 take 4 tabs daily for the next 2 days 07/30-07/31 take 3 tabs daily for the next 2 days 08/01-08/02 take 2 tabs daily for the next 2 days 08/03-08/04 take 1 tab daily for the final 2 days 08/05-08/06 Comments: NOT TAKEN IN HOSPITAL
== END 2017-07-25 13:30 ==
LOC: ERH 15:28 → ERHI 18:49 → ENRESERV 07-23 19:30 → ENTRNSPT 07-23 20:00 → 2NA 07-23 20:03 → EDTRNSPTSTS 07-23 20:04 → EDTRNSPT 07-23 20:04 → 2NA 07-23 20:13 → CMPTRNSPT 07-23 20:23 → ENPENDDIS 07-25 12:48 → 2NA 07-25 13:30
PROVIDERS: Physician Assistant; Student in an Organized Health Care Education/Training Program
DX: J45.901 Unspecified asthma with (acute) exacerbation (principal); Z87.891 Personal history of nicotine dependence; Z79.51 Long term (current) use of inhaled steroids; Z79.52 Long term (current) use of systemic steroids
CPT/HCPCS: 1263; 71046; 82436; 93005; 93010; 96374; 96375; G0378; J0456; J1650; J2920; J2930; J3490; J7060

== ENCOUNTER 2017-12-02 12:26 | Inpatient (IN) | payer OTHER ==
[~2017-12-02] VITALS: Ht 170.2 cm; Wt 71.7 kg
--- NOTE | 2017-12-02 12:35 | ED DYSPNEA/ASTHMA COMPLAINT ---
History of Present Illness General Chief Complaint: Wheezing/Asthma Stated Complaint: BIBA FOR ?ASTHMA Source: patient, old records, EMS Exam Limitations: no limitations Vital Signs & Intake/Output Vital Signs & Intake/Output Vital Signs Date Time Temp Pulse Resp B/P B/P Pulse O2 O2 Flow FiO2 Mean Ox Delivery Rate 12/02 1410 97 12/02 1342 99 Room Air 12/02 1341 98.0 68 20 128/80 99 Room Air 12/02 1230 98.0 68 18 145/95 100 Room Air Allergies Coded Allergies: No Known Allergies (12/01/16) Reconcile Medications Albuterol Sulfate (Ventolin Hfa) 90 MCG HFA.AER.AD 90 MCG IH 4XDP ASTHMA ( Reported) Fluticasone/Vilanterol (Breo Ellipta 100-25 Mcg INH) 100 MCG-25 MCG/DOSE BLST.W.DEV 1 PUFF PO DAILY SHORTNESS OF BREATH (Reported) Triage Note: 56 Y/O FEMALE BIBA FROM [facility] FOR EVAL OF SOB X FEW DAYS. PT RECEIVED 60MG PO PREDNISONE AND TOTAL OF 3 DUO NEB TX'S PRIOR TO ARRIVAL IN ED. PT ARRIVES ALERT/ORIENTED, SPEAKING CLEARLY WITH NO DISTRESS NOTED. SAT 100% RA. STATES SHE IS FEELING A LITTLE BETTER. IV HEPLOCK IN PLACE. AWAITING EVAL Triage Nurses Notes Reviewed? yes HPI: Patient presents with increasing wheezing, chest tightness and nonproductive cough. Symptoms have been worsening over the past 3-4 days however got worse this morning. Patient used her own inhaler and then went to a walk-in center. Between EMS and the walk-in center she received 3 albuterol nebs as well as 60 mg of prednisone. Patient still feels tight. She denies any fevers or chills. There is no orthopnea. Past History Travel History Traveled to [place] past 21 day No Medical History Any Pertinent Medical History? 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 No Review of Systems Review of Systems Constitutional: Reports: no symptoms. EENTM: Reports: no symptoms. Respiratory: Reports: see HPI, cough, short of breath, wheezing. Cardiovascular: Reports: no symptoms. GI: Reports: no symptoms. Genitourinary: Reports: no symptoms. Musculoskeletal: Reports: no symptoms. Skin: Reports: no symptoms. Neurological/Psychological: Reports: no symptoms. Hematologic/Endocrine: Reports: no symptoms. Immunologic/Allergic: Reports: no symptoms. All Other Systems: Reviewed and Negative Physical Exam Physical Exam General Appearance: well developed/nourished, alert, awake, anxious, moderate distress Head: atraumatic, normal appearance Eyes: Bilateral: PERRL, EOMI. Ears, Nose, Throat: normal pharynx, normal ENT inspection, hearing grossly normal Neck: normal inspection, supple, full range of motion Respiratory: decreased breath sounds, respiratory distress Cardiovascular: regular rate/rhythm, normal peripheral pulses Gastrointestinal: normal bowel sounds, soft, non-tender, no organomegaly Extremities: normal inspection, normal capillary refill, normal range of motion, no edema Neurologic/Psych: no motor/sensory deficits, awake, alert, oriented x 3, normal mood/affect Skin: intact, normal color, warm/dry Lymphatic: no anterior cervical cherie Core Measures ACS in differential dx? No CVA/TIA Diagnosis No Sepsis Present: No Sepsis Focused Exam Completed? No Progress Differential Diagnosis: asthma, pneumonia Plan of Care: Orders Procedure Date/time Status Add-on Test (ER Only) 12/02 1516 Active TROPONIN LEVEL 12/02 1312 Active TROPONIN LEVEL 12/02 1301 Active EKG 12/02 1257 Active COMPREHENSIVE METABOLIC PANEL 12/02 1250 Active CBC WITHOUT DIFFERENTIAL 12/02 1250 Complete Current Medications Sig/Stephen Start time Last Medication Dose Stop Time Status Admin Magnesium Sulfate 1 GM ONCE ONE 12/02 1245 AC 12/02 (Mag Sulfate in D5) 12/02 1644 1245 Dextrose/Water 100 ML (D5W) Laboratory Tests 12/02/17 1312: Anion Gap 13, Estimated GFR > 60, BUN/Creatinine Ratio 15.0, Glucose 135 H, Calcium 9.5, Total Bilirubin 0.9, AST 18, ALT 22, Alkaline Phosphatase 68, Troponin I Pending, Total Protein 6.8, Albumin 4.2, Globulin 2.6, Albumin/ Globulin Ratio 1.6, CBC w Diff NO MAN DIFF REQ, RBC 4.91, MCV 92.3, MCH 30.0, MCHC 32.4 L, RDW 14.0, MPV 6.9 L, Gran % 70.1, Lymphocytes % 25.6, Monocytes % 3.5, Eosinophils % 0.3, Basophils % 0.5, Absolute Granulocytes 5.3, Absolute Lymphocytes 1.9, Absolute Monocytes 0.3, Absolute Eosinophils 0, Absolute Basophils 0 Diagnostic Imaging: Viewed by Me: Radiology Read. Discussed w/RAD: Radiology Read. CXR Impression: PATIENT: JACQUE HART PRESENT AGE : 56 PATIENT ACCOUNT NO: [id number] : 58 LOCATION: [facility] ORDERING PHYSICIAN: Sal Hairston MD SERVICE DATE: 12/02/17 EXAM TYPE: RAD - XRY-CHEST XRAY, TWO VIEWS EXAMINATION: XR CHEST CLINICAL INFORMATION: Shortness of breath pneumonia COMPARISON: July 2017 TECHNIQUE: 2 views of the chest were obtained. FINDINGS: Mild increased interstitial lung markings chronic unchanged, no focal consolidation. No pleural effusion or pneumothorax. Heart is normal in size. No failure. No pneumothorax. IMPRESSION: No radiographic evidence of acute cardiopulmonary disease. DICTATED BY: Grace Spaulding MD DATE/TIME DICTATED:12/02/171399 ACADEMIC AFFAIRS MANAGER:DEACON DATE/TIME TRANSCRIBED:12/02/171399 CONFIDENTIAL, DO NOT COPY WITHOUT APPROPRIATE AUTHORIZATION. <Electronically signed in Other Vendor System> SIGNED BY: Grace Spaulding MD 12/02/17 1401 Initial ED EKG: none Comments: Patient has been seen by Dr. Millard in the emergency department. Still wheezing after magnesium. We'll give continuous nebs and reevaluate. Patient still has wheezing in all paulino with slightly better air entry. At this point patient will be admitted for asthma exacerbation. Departure Departure Disposition: STILL A PATIENT Condition: Stable Clinical Impression Primary Impression: Asthma exacerbation Referrals: Marleni HAMMONDS,Hammad Martin (PCP/Family) Departure Forms: Customer Survey General Discharge Information Admission Note Spoke With: Bennie HAMMONDS,Bertram Odonnell Documentation of Exam: Documentation of any treatments & extenuating circumstances including Concerns Regarding Discharge (functional status, medication knowledge or non-compliance, living conditions, etc.) that warrant an admission rather than observation: [ Patient be admitted for status asthmaticus, pulmonary consultation, steroids, nebulizers, respiratory treatment] Critical Care Note Critical Care Note Critical Care Time: mins: (120 MIN)
[2017-12-02] MEDS ORDERED: BREO ELLIPTA 11 EACH PO (12:41)
[2017-12-02 13:28] LABS: ABSOLUTE BASOPHIL COUNT 0 /CUMM (0.0-0.2); ABSOLUTE EOSINOPHIL COUNT 0 /CUMM (0.0-0.7); ABSOLUTE GRANULOCYTE CT 5.3 /CUMM (1.4-6.5); ABSOLUTE LYMPH COUNT 1.9 /CUMM (1.2-3.4); ABSOLUTE MONOCYTE COUNT 0.3 /CUMM (0.10-0.60); BASOPHIL % 0.5 % (0.0-2.0); EOSINOPHIL % 0.3 % (0-5); GRANULOCYTE % 70.1 % (42.2-75.2); HEMATOCRIT 45.3 % (37-47); MEAN CORPUSCULAR HGB CONC 32.4 G/DL (33.0-37.0); MEAN CORPUSCULAR VOLUME 92.3 FL (81.0-99.0); MEAN PLATELET VOLUME 6.9 FL (7.4-10.4); PLATELET COUNT 272 /CUMM (130-400); RED BLOOD CELL CT 4.91 /CUMM (4.20-5.40); WHITE BLOOD CELL COUNT 7.6 /CUMM (4.8-10.8)
--- NOTE | 2017-12-02 14:05 | RADIOLOGY REPORT ---
EXAMINATION: XR CHEST CLINICAL INFORMATION: Shortness of breath pneumonia COMPARISON: July 2017 TECHNIQUE: 2 views of the chest were obtained. FINDINGS: Mild increased interstitial lung markings chronic unchanged, no focal consolidation. No pleural effusion or pneumothorax. Heart is normal in size. No failure. No pneumothorax. IMPRESSION: No radiographic evidence of acute cardiopulmonary disease.
--- NOTE | 2017-12-02 16:39 | History & Physical ---
Keiko Huff MD 12/02/17 6259: General Information and HPI MD Statement: I have seen and personally examined JACQUE HART and documented this H&P. The patient is a 56 year old F who presented with a patient stated chief complaint of [wheezing, chest tightness]. Source of Information: patient, old records History of Present Illness: Patient is a 56 y/o female with PMH of asthma and currently on Ellipta-Breo and Albuterol, former smoker (quit 5 years ago), most recent admission on July 2017 for asthma exacerbation presenting this admission with chief complaint of wheezing, chest tightness and lightheadedness. Patient reports that she today at work she felt lightheaded and had chest tightness. States that she went to the [place] walk-in clinic and was given a DuoNeb treatment and 60 mg of by mouth prednisone. Patient reports that she did not improve with the treatment and was told she would require admission. Patient requested to come to [facility]. Patient received 2 more treatments of albuterol nebulizer en route to the hospital. Patient states that she has not been feeling well for the past few weeks. Reports that she has had multiple episodes of exacerbation requiring greater use of her rescue inhaler. Reports that most recently she was out walking over the weekend and required her albuterol inhaler 3-4 times. Patient states that she takes ellipta once per day and uses her nebulizer as needed. Patient reports a nonproductive cough. Denies chest pain, palpitations, fever/ chills, abdominal pain, dysuria/hematuria. Patient reports that she has never required ICU admission for asthma or intubation. Patient denies any recent sick contacts or allergies. Patient reports that she quit smoking approximately 5 years ago. Patient sign language instructor is Dr. Millard whom she saw today in the ED. In the ED patient received magnesium sulfate 1 g IV 1 and albuterol. Allergies/Medications Allergies: Coded Allergies: No Known Allergies (12/01/16) Home Med list Albuterol Sulfate (Ventolin Hfa) 90 MCG HFA.AER.AD 90 MCG IH 4XDP ASTHMA ( Reported) Fexofenadine HCl (Narda Allergy) 180 MG TABLET 1 TAB PO DAILY ASTHMA Fluticasone/Vilanterol (Breo Ellipta 100-25 Mcg INH) 100 MCG-25 MCG/DOSE BLST.W.DEV 1 PUFF PO DAILY SHORTNESS OF BREATH (Reported) Montelukast Sodium 10 MG TABLET 10 MG PO AT BEDTIME ASTHMA Prednisone 10 MG TABLET 0 PO SEE ADMIN CRITERIA ASTHMA EXACERBATION Take 4 tabs daily on 12/05-12/07 3 tabs daily on 12/08-12/10 2 tabs on 12/11-12/13 1 tab on 12/14-12/16 Past History Travel History Traveled to [place] past 21 day No Medical History Neurological: NONE EENT: NONE Cardiovascular: NONE Respiratory: asthma Gastrointestinal: NONE Hepatic: NONE Renal: NONE Musculoskeletal: NONE Psychiatric: NONE Endocrine: NONE Blood Disorders: NONE Cancer(s): 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 Cardiovascular: Reports: no symptoms. Respiratory: Reports: see HPI. GI: Reports: no symptoms. Genitourinary: Reports: no symptoms. Musculoskeletal: Reports: no symptoms. Skin: Reports: no symptoms. Neurological/Psychological: Reports: tremors. Hematologic/Endocrine: Reports: bruising. Exam & Diagnostic Data Last 24 Hrs of Vital Signs/I&O Vital Signs Date Time Temp Pulse Resp B/P B/P Pulse O2 O2 Flow FiO2 Mean Ox Delivery Rate 12/02 1710 97.5 86 20 140/68 99 Room Air 12/02 1634 99 18 144/67 99 Room Air 12/02 1410 97 12/02 1342 99 Room Air 12/02 1341 98.0 68 20 128/80 99 Room Air 12/02 1230 98.0 68 18 145/95 100 Room Air Intake & Output 12/02 1600 12/02 0800 12/02 0000 Intake Total Output Total Balance Patient 160 lb Weight Weight Reported by Patient Measurement Method Physical Exam General Appearance Alert, Cooperative, No Acute Distress Skin No Rashes Skin Temp/Moisture Exam: Warm/Dry Sepsis Skin Exam (color): Normal for Ethnicity HEENT Atraumatic, PERRLA, EOMI, Mucous Membr. moist/pink Cardiovascular Regular Rate, Normal S1, Normal S2 Lungs bilateral diffuse expiratory and inspiratory wheezing, significantly decreased air entry bilaterally Abdomen Normal Bowel Sounds, Soft, No Tenderness Neurological Normal Speech, Cranial Nerves 3-12 NL, slight tremor Extremities No Clubbing, No Cyanosis, No Edema, Normal Pulses, No Tenderness/ Swelling Vascular Normal Pulses, Pulses Symmetrical Last 24 Hrs of Labs/Anupam: Laboratory Tests 12/02/17 1312: Anion Gap 13, Estimated GFR > 60, BUN/Creatinine Ratio 15.0, Glucose 135 H, Calcium 9.5, Total Bilirubin 0.9, AST 18, ALT 22, Alkaline Phosphatase 68, Troponin I < 0.01, Total Protein 6.8, Albumin 4.2, Globulin 2.6, Albumin/ Globulin Ratio 1.6, CBC w Diff NO MAN DIFF REQ, RBC 4.91, MCV 92.3, MCH 30.0, MCHC 32.4 L, RDW 14.0, MPV 6.9 L, Gran % 70.1, Lymphocytes % 25.6, Monocytes % 3.5, Eosinophils % 0.3, Basophils % 0.5, Absolute Granulocytes 5.3, Absolute Lymphocytes 1.9, Absolute Monocytes 0.3, Absolute Eosinophils 0, Absolute Basophils 0 12/02/17 1301: Troponin I Cancelled Diagnostic Data CXR Results IMPRESSION: No radiographic evidence of acute cardiopulmonary disease. Assessment/Plan Assessment: Patient is a 56-year-old female, former smoker, with past medical history significant for asthma presenting this admission continues to asthma exacerbation not responding to multiple nebulizer treatments and oral prednisone. Despite receiving multiple respiratory treatments and oral steroids patient continues to remain short of breath with significant chest tightness and decreased air entry bilaterally on examination. Patient is currently saturating well on room air and stable enough for admission to the general medical floor. Patient over the recent few weeks has required more frequent use of her short- acting bronchodilator and is currently also on an inhaled corticosteroid/long- acting broncho-dilator combination. It is unclear what triggered this asthma exacerbation. Patient remains afebrile with normal WBC, CXR shows no signs of infection. Patient denies any known allergies or environmental triggers. 1. Asthma exacerbation * Admitted to the general medical floor * Was started on IV Solu-Medrol 60 mg 1 today followed by 40 mg every 8 hours * TRC and DuoNeb treatments * Measure peak flow * Supplemental oxygen as needed * Pulmonology is following * Montior vitals qshift DVT PPx: Lovenox Diet: Regular diet Code: Full code As Ranked By This Provider Problem List: 1. Asthma exacerbation Core Measures/Misc (03/03) Acute Coronary Syndrome ACS Diagnosis: No Congestive Heart Failure Congestive Heart Failure Diagnosis No Cerebrovascular Accident CVA/TIA Diagnosis: No VTE (View Protocol) VTE Risk Factors Age>40 No Mechanical VTE Prophylaxis d/t N/A MechProphylax Ordered No VTE Pharm Prophylaxis d/t NA PharmProphylax ordered Sepsis (View protocol) Sepsis Present: No If YES complete Sepsis Event Note If YES complete Sepsis Event Note Lucien Yepez 12/02/17 1738: Core Measures/Misc (03/03) Sepsis (View protocol) If YES complete Sepsis Event Note If YES complete Sepsis Event Note Resident Review Statement Resident Statement: examined this patient, discussed with internet systems administrator, agreed with internet systems administrator, discussed with family, reviewed EMR data (avail), discussed with nursing , discussed with case mgmt, reviewed images, amended to note Other Findings: This is a 56-year-old female with past medical history significant for asthma presented to the hospital for evaluation of chest tightness, cough, wheeze since morning. Patient has history of asthma for many years, with no asthma exacerbations until unless 1 year ago. She was admitted to [place] in July 2017 for asthma exacerbation, treated with antibiotics and steroids. She was never admitted to ICU, intubated. Patient reports chest tightness associated with wheezing since morning. She also reports shortness of breath, nonproductive cough. Denies any fever, chills, chest pain, palpitations, sick contact exposure, travel history. She reports minimal relief with her inhaler treatment. She went to [place] walk -in clinic, received 60 mg prednisone, DuoNeb treatment, transferred to [place] for asthma exacerbation. Review of systems negative except for above. She is a former smoker, denies alcohol abuse, denies illicit drug abuse. No other medical history other than asthma. Vitals afebrile, heart rate 60, respiratory rate 18, blood pressure 145/95, saturating at 100 on room air. On exam HEENT within normal limit, no lymphadenopathy, no JVD, S1-S2 regular, bilateral poor air entry, inspiratory and expiratory wheezes, per Abdomen soft, nontender, lower extremity no edema, no cyanosis, no clubbing. CBC and BEP within normal limits Chest x-ray no acute cardiopulmonary findings. Received albuterol treatment and IV Mgso4 in the emergency room. ---- 1. Asthma exacerbation Patient presented with sudden onset chest tightness associated with wheezing, SOB, nonproductive cough for 1 day. Given her chronic history of asthma with frequent asthma exacerbations recently, possibilities for her chest tightness and wheeze include asthma exacerbation. Chest x-ray was negative, ruled out pneumonia. No trigger factors were noticed. She is nonsmoker. She is afebrile with normal WBC count. * Admit to [facility] floor for asthma exacerbation * Monitor vitals every shift * Maintain oxygen saturations above 90 * Provide supplemental oxygen if necessary * IV methylprednisolone 60 mg 1 dose now * We'll start her on steroids IV methylprednisolone 40 mg every 8 hours from tomorrow * Duonebs * Total respiratory care * Tile Helper Dr. Millard on board Full code Regular diet Subcutaneous Lovenox for DVT prophylaxis Pain pathway Tylenol Bertram Avery 12/02/17 2121: Core Measures/Misc (03/03) Sepsis (View protocol) If YES complete Sepsis Event Note If YES complete Sepsis Event Note Attending MD Review Statement Attending Statement Attending MD Statement: examined this patient, discuss w/resident/PA/FLOOR CARE TECHNICIAN, agreed w/resident/PA/FLOOR CARE TECHNICIAN, reviewed EMR data (avail), discussed with nursing, discussed with case mgmt Attending Assessment/Plan: 56 yr old female with pmh of asthma presented with c/c of sob and chest tightness for 3-4 days. Pt was seen at urgent care clinic in [place] where she was given nebs and po prednisone 60mg but since she was not improving she was sent to ER by EMS and was given more nebs on route to ER and is being admitted for asthma exacerbation. Pt had last asthma exacerbation in jul of this year. Pt in ER on exam has poor air entry but was able to talk in full sentences. Acute asthma exacerbation- will give her a dose of iv solumedrol 60mg and start her on iv solumedrol 40mg q8h and will put her on nebs per TRC. appreciated pulm consult. d/w pt the care plan. Watch for deteriroation. Will check peak flow every shift to make sure she is not worsening.
--- NOTE | 2017-12-02 16:57 | Cons- Pulmonary ---
General Information and HPI Consulting Request Date of Consult: 12/02/17 Requested By: Dr. Hairston Reason for Consult: exacerbation of asthma Source of Information: patient Exam Limitations: no limitations History of Present Illness: 56 year old woman. Known from office. Presented from work after feeling dyspneic and dizzy. History of reactive airways disease/asthma. Maintained on BREO. PFTs overall normal. Can represent reactive airways disease. Uses Ventolin for rescue. Recently obtained insurance. Hx of asthma, saw unit nurse in [place] in , re[place]established care in [place] with myself. . Irritable side effects with prednisone. Hx of depression and asthma. Dry cough, No fevers, no chills. Seasonal allergies. No sick contacts. No travel hx. Allergies/Medications Allergies: Coded Allergies: No Known Allergies (12/01/16) Home Med List: Albuterol Sulfate (Ventolin Hfa) 90 MCG HFA.AER.AD 90 MCG IH 4XDP ASTHMA ( Reported) Fluticasone/Vilanterol (Breo Ellipta 100-25 Mcg INH) 100 MCG-25 MCG/DOSE BLST.W.DEV 1 PUFF PO DAILY SHORTNESS OF BREATH (Reported) Current Medications: Current Medications Sig/Stephen Start time Last Medication Dose Route Stop Time Status Admin Acetaminophen 650 MG Q6P PRN 12/02 1600 AC PO Albuterol Sulfate 18 ML ONCE ONE 12/02 1400 DC 12/02 INH 12/02 1401 1401 Enoxaparin Sodium 40 MG DAILY 12/03 0900 AC SC Magnesium Sulfate 1 GM ONCE ONE 12/02 1245 DC 12/02 Dextrose/Water 100 ML IV 12/02 1644 1245 Review of Systems Comments 18 pt ROS pertinent positives and negatives in HPI, otherwise negative. 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 Surgical History Surgical History: hysterectomy, X3, spinal fusion, Family History Relations & Conditions If Any: Relation not specified for: *No pertinent family history Psychosocial History ETOH Use: denies use Illicit Drug Use: denies illicit drug use Exam & Diagnostic Data Last 24 Hrs of Vital Signs/I&O Vital Signs Date Time Temp Pulse Resp B/P B/P Pulse O2 O2 Flow FiO2 Mean Ox Delivery Rate 12/02 1938 Room Air 12/02 1710 99 Room Air 12/02 1710 97.5 86 20 140/68 99 Room Air 12/02 1634 99 18 144/67 99 Room Air 12/02 1410 97 12/02 1342 99 Room Air 12/02 1341 98.0 68 20 128/80 99 Room Air 12/02 1230 98.0 68 18 145/95 100 Room Air Intake & Output 12/02 1600 12/02 0800 12/02 0000 Intake Total Output Total Balance Patient 160 lb Weight Weight Reported by Patient Measurement Method Physical Exam Other Physical Findings: gen-aaox3 h/n-ncat cvs-s1,s2 lungs-bilateral wheezing inspiratory and expiratory abd-soft,bs+ ext-without edema Last 48 Hrs of Labs/Anupam: Laboratory Tests 12/02/17 1312: Anion Gap 13, Estimated GFR > 60, BUN/Creatinine Ratio 15.0, Glucose 135 H, Calcium 9.5, Total Bilirubin 0.9, AST 18, ALT 22, Alkaline Phosphatase 68, Troponin I < 0.01, Total Protein 6.8, Albumin 4.2, Globulin 2.6, Albumin/ Globulin Ratio 1.6, CBC w Diff NO MAN DIFF REQ, RBC 4.91, MCV 92.3, MCH 30.0, MCHC 32.4 L, RDW 14.0, MPV 6.9 L, Gran % 70.1, Lymphocytes % 25.6, Monocytes % 3.5, Eosinophils % 0.3, Basophils % 0.5, Absolute Granulocytes 5.3, Absolute Lymphocytes 1.9, Absolute Monocytes 0.3, Absolute Eosinophils 0, Absolute Basophils 0 12/02/17 1301: Troponin I Cancelled Assessment/Plan Impression/Plan: Impression 56 year old woman * exacerbation of reactive airways disease/asthma likely secondary to seasonal allergies Plan -TRC/Nebs -reduce steroids to solumedrol 40mg iv q12h in am -monitor finger sticks -check peak flow qshift and document -would add montelukast and fexofenadine if patient is agreeable DVT prophylaxis at all times Consult Acknowledgment - Thank you for your consult request.
[2017-12-02 17:10] VITALS: BP 140/68
--- NOTE | 2017-12-02 21:20 | Admission Certification ---
Admission Certification Certification Statement - As attending physician, I certify that at the time of - admission, based on clinical presentation, severity of - symptoms, need for further diagnostic testing and - therapeutic interventions, and risk of adverse outcomes - without in-hospital treatment, in my clinical assessment, - this patient requires an acute hospital stay for a minimum - of two nights or longer. I have also considered psychsocial - factors such as support system, advanced age, financial - issues, cognitive issues, and failed out-patient treatments, - past re-admission history, safety of patient, and lack of - compliance as applicable. Specific rationale supporting this admission is: acute asthma exacerbation.
[2017-12-02 22:27] VITALS: BP 129/75
[2017-12-03 06:06] VITALS: BP 128/61
--- NOTE | 2017-12-03 08:01 | PN- Housestaff ---
Refugio HAMMONDS,Keiko 12/03/17 0801: Subjective Follow-up For: Asthma Exacerbation Subjective: Patient reports improvement in breathing. Continues to report chest tightness. No acut events overnight. Review of Systems Constitutional: Reports: see HPI. Objective Last 24 Hrs of Vital Signs/I&O Vital Signs Date Time Temp Pulse Resp B/P B/P Pulse O2 O2 Flow FiO2 Mean Ox Delivery Rate 12/04 0000 97 Room Air 12/03 2148 98.0 73 16 124/70 100 Room Air 12/03 1810 97 Room Air 12/03 1600 98 Room Air 12/03 1400 98.4 74 20 122/72 99 Room Air 12/03 1004 98 Room Air 12/03 0800 97 Room Air 12/03 0613 97 Room Air 12/03 0606 97.7 61 20 128/61 98 Room Air Intake & Output 12/04 0800 12/04 0000 12/03 1600 Intake Total 480 600 Output Total Balance 480 600 Intake, IV 0 Intake, Oral 480 600 Number 0 Bowel Movements Physical Exam General Appearance: Alert, Oriented X3, Cooperative, No Acute Distress HEENT: Atraumatic, PERRLA, EOMI, Mucous Membr. moist/pink Cardiovascular: Regular Rate, Normal S1, Normal S2 Lungs: bilateral diffuse expiratory wheezing Abdomen: Normal Bowel Sounds, Soft, No Tenderness, No Hepatospenomegaly, No Masses Extremities: No Clubbing, No Cyanosis, No Edema, Normal Pulses, No Tenderness/ Swelling Current Medications: Current Medications Sig/Stephen Start time Last Medication Dose Route Stop Time Status Admin Acetaminophen 650 MG Q6P PRN 12/02 1600 AC PO Albuterol Sulfate 3 ML EVERY 4 HRS/AWAKE 12/02 2000 AC 12/03 INH 2205 Albuterol Sulfate 3 ML Q4H PRN 12/02 1800 AC INH Enoxaparin Sodium 40 MG DAILY 12/03 0900 AC 12/03 SC 0801 Loratadine 10 MG DAILY 12/03 1645 AC 12/03 PO 1845 Methylprednisolone 40 MG Q12 12/03 0900 AC 12/03 IV 2041 Montelukast Sodium 10 MG AT BEDTIME 12/03 2100 AC 12/03 PO 2043 Patient Medication 1 ED ONE ONE 12/03 1630 DC 12/03 Teaching ED 12/03 1631 1846 Last 24 Hrs of Lab/Anupam Results Last 24 Hrs of Labs/Mics: Laboratory Tests 12/03/17 0715: Anion Gap 9, Estimated GFR > 60, BUN/Creatinine Ratio 16.7, CBC w Diff NO MAN DIFF REQ, RBC 4.82, MCV 92.1, MCH 30.4, MCHC 33.0, RDW 14.2, Gran % 81.0 H, Lymphocytes % 11.1 L, Monocytes % 7.7, Eosinophils % 0, Basophils % 0.2, Absolute Granulocytes 9.0 H, Absolute Lymphocytes 1.2, Absolute Monocytes 0.9 H, Absolute Eosinophils 0, Absolute Basophils 0 Assessment/Plan Assessment: Assessment: Patient is a 56-year-old female, former smoker, with past medical history significant for asthma presenting this admission continues to asthma exacerbation not responding to multiple nebulizer treatments and oral prednisone. Despite receiving multiple respiratory treatments and oral steroids patient continues to remain short of breath with significant chest tightness and decreased air entry bilaterally on examination. Patient is currently saturating well on room air and stable enough for admission to the general medical floor. Patient over the recent few weeks has required more frequent use of her short- acting bronchodilator and is currently also on an inhaled corticosteroid/long- acting broncho-dilator combination. It is unclear what triggered this asthma exacerbation. Patient remains afebrile with normal WBC, CXR shows no signs of infection. Patient denies any known allergies or environmental triggers. 1. Asthma exacerbation * Admitted to the general medical floor * Continue IV Solu-Medrol 40 mg BID * TRC and DuoNeb treatments * Measure peak flow qshift: last 250 * Supplemental oxygen as needed * Pulmonology is following - added montelukast and claritin today * Montior vitals qshift DVT PPx: Lovenox Diet: Regular diet Code: Full code Problem List: 1. Asthma exacerbation Pain Ratin Pain Location: n/a Pain Goal: Remain pain free Pain Plan: prn Tomorrow's Labs & Rationales: bep- hyperkalemia Myrtle Mai MD 12/03/17 1501: Attending MD Review Statement Attending Statement Attending MD Statement: examined this patient, discuss w/resident/PA/FIRER WATERTENDER, agreed w/resident/PA/FIRER WATERTENDER, reviewed EMR data (avail), discussed with nursing, discussed with case mgmt, amended to note Attending Assessment/Plan: Patient seen and examined. Resting comfortably not in acute distress. She reports feeling better compared to presentation. She is afebrile. She is hemodynamically stable. She is not requiring oxygen supplementation. On examination however she has significantly decreased breath sounds bilaterally with expiratory wheezing. Will continue bronchodilator therapy. We will continue systemic steroid therapy. Will reevaluate patient in a.m. If she is doing better clinically we will consider discharge home on oral steroid taper. Case has been discussed with the respiratory therapist to obtain and document peak flow rates. Pulmonology evaluation appreciated.
[2017-12-03 08:36] LABS: ABSOLUTE BASOPHIL COUNT 0 /CUMM (0.0-0.2); ABSOLUTE EOSINOPHIL COUNT 0 /CUMM (0.0-0.7); ABSOLUTE LYMPH COUNT 1.2 /CUMM (1.2-3.4); ABSOLUTE MONOCYTE COUNT 0.9 /CUMM (0.10-0.60); BASOPHIL % 0.2 % (0.0-2.0); EOSINOPHIL % 0 % (0-5); HEMATOCRIT 44.3 % (37-47); MEAN CORPUSCULAR HGB 30.4 PG (27.0-31.0); MEAN CORPUSCULAR VOLUME 92.1 FL (81.0-99.0); RBC DISTRIBUTION WIDTH 14.2 % (11.5-14.5); RED BLOOD CELL CT 4.82 /CUMM (4.20-5.40); WHITE BLOOD CELL COUNT 11.1 /CUMM (4.8-10.8)
--- NOTE | 2017-12-03 10:51 | PN- Pulmonary ---
Subjective HPI/Critical Care Issues: pt seen and examined still wheezing significantly dyspnea on exertion no n/v/d/c, no coreas allergic like sx Objective Current Medications: Current Medications Sig/Stephen Start time Last Medication Dose Route Stop Time Status Admin Acetaminophen 650 MG Q6P PRN 12/02 1600 AC PO Albuterol Sulfate 3 ML EVERY 4 HRS/AWAKE 12/02 2000 AC 12/03 INH 0952 Albuterol Sulfate 3 ML Q4H PRN 12/02 1800 AC INH Albuterol Sulfate 18 ML ONCE ONE 12/02 1400 DC 12/02 INH 12/02 1401 1401 Enoxaparin Sodium 40 MG DAILY 12/03 0900 AC 12/03 SC 0801 Magnesium Sulfate 1 GM ONCE ONE 12/02 1245 DC 12/02 Dextrose/Water 100 ML IV 12/02 1644 1245 Methylprednisolone 40 MG Q12 12/03 0900 AC 12/03 IV 0800 Methylprednisolone 40 MG Q8 12/03 0600 DC IV Methylprednisolone 60 MG ONCE ONE 12/02 1800 DC 12/02 IV 12/02 1801 1853 Vital Signs & I&O Last 24 Hrs of Vitals and I&O: Vital Signs Date Time Temp Pulse Resp B/P B/P Pulse O2 O2 Flow FiO2 Mean Ox Delivery Rate 12/03 1004 98 Room Air 12/03 0800 97 Room Air 12/03 0613 97 Room Air 12/03 0606 97.7 61 20 128/61 98 Room Air 12/03 0000 Room Air 12/02 2227 97.8 74 17 129/75 98 Room Air 12/02 1938 Room Air 12/02 1710 99 Room Air 12/02 1710 97.5 86 20 140/68 99 Room Air 12/02 1634 99 18 144/67 99 Room Air 12/02 1410 97 12/02 1342 99 Room Air 12/02 1341 98.0 68 20 128/80 99 Room Air 12/02 1230 98.0 68 18 145/95 100 Room Air Intake & Output 12/03 1600 12/03 0800 12/03 0000 Intake Total 490 250 Output Total Balance 490 250 Intake, IV 10 10 Intake, Oral 480 240 Number 0 0 Bowel Movements Patient 158 lb Weight Weight Reported by Patient Measurement Method Exam Other Physical Findings: gen-aaox3 h/n-ncat cvs-s1,s2 lungs-bilateral wheezing inspiratory and expiratory abd-soft,bs+ ext-without edema Results Last 24 Hrs of Lab Results: Laboratory Tests 12/03/17 0715: Anion Gap 9, Estimated GFR > 60, BUN/Creatinine Ratio 16.7, CBC w Diff NO MAN DIFF REQ, RBC 4.82, MCV 92.1, MCH 30.4, MCHC 33.0, RDW 14.2, Gran % 81.0 H, Lymphocytes % 11.1 L, Monocytes % 7.7, Eosinophils % 0, Basophils % 0.2, Absolute Granulocytes 9.0 H, Absolute Lymphocytes 1.2, Absolute Monocytes 0.9 H, Absolute Eosinophils 0, Absolute Basophils 0 12/02/17 1312: Anion Gap 13, Estimated GFR > 60, BUN/Creatinine Ratio 15.0, Glucose 135 H, Calcium 9.5, Total Bilirubin 0.9, AST 18, ALT 22, Alkaline Phosphatase 68, Troponin I < 0.01, Total Protein 6.8, Albumin 4.2, Globulin 2.6, Albumin/ Globulin Ratio 1.6, CBC w Diff NO MAN DIFF REQ, RBC 4.91, MCV 92.3, MCH 30.0, MCHC 32.4 L, RDW 14.0, MPV 6.9 L, Gran % 70.1, Lymphocytes % 25.6, Monocytes % 3.5, Eosinophils % 0.3, Basophils % 0.5, Absolute Granulocytes 5.3, Absolute Lymphocytes 1.9, Absolute Monocytes 0.3, Absolute Eosinophils 0, Absolute Basophils 0 12/02/17 1301: Troponin I Cancelled Impression/Plan Impression/Plan Impression/Plan: Impression 56 year old woman * exacerbation of reactive airways disease/asthma likely secondary to seasonal allergies Plan -TRC/Nebs -continue steroids to solumedrol 40mg iv q12h -monitor finger sticks -check peak flow qshift and document -pt agreed - please add montelukast and fexofenadine DVT prophylaxis at all times
[2017-12-03 14:00] VITALS: BP 122/72
[2017-12-03 21:48] VITALS: BP 124/70
[2017-12-04 06:52] VITALS: BP 124/68
--- NOTE | 2017-12-04 07:56 | Patient Discharge Instructions ---
Acute Coronary Syndrome Inclusion Criteria At DC or during hospital stay patient has or had the following: Discharge Core Measures Meds if any: Prescribed or Continued at Discharge Meds if any: NOT Prescribed or Continued at Discharge Congestive Heart Failure Inclusion Criteria At DC or during hospital stay patient has or had the following: Discharge Core Measures Meds if any: Prescribed or Continued at Discharge Meds if any: NOT Prescribed or Continued at Discharge Cerebrovascular accident Inclusion Criteria At DC or during hospital stay patient has or had the following: CVA/TIA Diagnosis No Discharge Core Measures Meds if any: Prescribed or Continued at Discharge Meds if any: NOT Prescribed or Continued at Discharge Venous thromboembolism Discharge Core Measures - Per Current guidelines, there needs to be overlap - treatment for the first 5 days of Warfarin therapy. - If discharged on Warfarin prior to 5 days of - overlap therapy, the patient will need to be - assessed for post discharge needs including - *Post discharge parental anticoagulation - *Warfarin and/or parental anticoagulation education - *Follow up date to check INR post discharge Meds if any: Prescribed or Continued at Discharge Note: Overlap Therapy is Warfarin and Anticoagulant Meds if any: NOT Prescribed or Continued at Discharge
--- NOTE | 2017-12-04 07:58 | PN- Housestaff ---
Refugio HAMMONDS,Keiko 12/04/17 0757: Subjective Follow-up For: Asthma Exacerbation Subjective: Patient was seen and examined today. Patient reports she is feeling much better today and less tight. Reports continued cough, nonproductive. States that she does feel like she may bring something up and at time feels nauseous because of the coughing. Would not like any medication to help at this time. Also inquiring about her B12 this morning. Reports her body does not hold on to B12 and she takes PO and gets injections. Reports neuropathy when her B12 his low. No acute events overnight. Review of Systems Constitutional: Reports: see HPI. Objective Last 24 Hrs of Vital Signs/I&O Vital Signs Date Time Temp Pulse Resp B/P B/P Pulse O2 O2 Flow FiO2 Mean Ox Delivery Rate 12/04 0652 98.0 63 18 124/68 96 12/04 0637 99 Room Air 12/04 0000 97 Room Air 12/03 2148 98.0 73 16 124/70 100 Room Air 12/03 1810 97 Room Air 12/03 1600 98 Room Air 12/03 1400 98.4 74 20 122/72 99 Room Air 12/03 1004 98 Room Air 12/03 0800 97 Room Air Intake & Output 12/04 0800 12/04 0000 12/03 1600 Intake Total 480 480 600 Output Total Balance 480 480 600 Intake, IV 0 Intake, Oral 480 480 600 Number 0 Bowel Movements Physical Exam General Appearance: Alert, Oriented X3, Cooperative, No Acute Distress Skin Temp/Moisture Exam: Warm/Dry HEENT: Atraumatic, Mucous Membr. moist/pink Neck: Supple Cardiovascular: Regular Rate, Normal S1, Normal S2 Lungs: decreased air entry bilaterally, scattered expiratory wheezes Abdomen: Normal Bowel Sounds, Soft, No Tenderness Neurological: Normal Speech, Cranial Nerves 3-12 NL Extremities: No Clubbing, No Cyanosis, No Edema, Normal Pulses, No Tenderness/ Swelling Current Medications: Current Medications Sig/Stephen Start time Last Medication Dose Route Stop Time Status Admin Acetaminophen 650 MG Q6P PRN 12/02 1600 AC PO Albuterol Sulfate 3 ML EVERY 4 HRS/AWAKE 12/03 1999 AC 12/04 INH 0625 Albuterol Sulfate 3 ML Q4H PRN 12/02 1800 AC INH Enoxaparin Sodium 40 MG DAILY 12/03 0900 AC 12/03 SC 0801 Loratadine 10 MG DAILY 12/03 1645 AC 12/03 PO 1845 Methylprednisolone 40 MG Q12 12/03 0900 AC 12/03 IV 204 Montelukast Sodium 10 MG AT BEDTIME 12/03 2100 AC 12/03 PO 204 Patient Medication 1 ED ONE ONE 12/03 1630 DC 12/03 Teaching ED 12/03 1631 1846 Last 24 Hrs of Lab/Anupam Results Last 24 Hrs of Labs/Mics: Laboratory Tests 12/04/17 0719: Sodium Pending, Potassium Pending, Chloride Pending, Carbon Dioxide Pending, Anion Gap Pending, BUN Pending, Creatinine Pending, BUN/Creatinine Ratio Pending Assessment/Plan Assessment: Patient is a 56-year-old female, former smoker, with past medical history significant for asthma presenting this admission continues to asthma exacerbation not responding to multiple nebulizer treatments and oral prednisone. Despite receiving multiple respiratory treatments and oral steroids patient continues to remain short of breath with significant chest tightness and decreased air entry bilaterally on examination. Patient is currently saturating well on room air and stable enough for admission to the general medical floor. Patient over the recent few weeks has required more frequent use of her short- acting bronchodilator and is currently also on an inhaled corticosteroid/long- acting broncho-dilator combination. It is unclear what triggered this asthma exacerbation. Patient remains afebrile with normal WBC, CXR shows no signs of infection. Patient denies any known allergies or environmental triggers. Patient today appears to have improved. Patient was seen by journeyman electrician later in the day and felt lightheaded and believes she would benefit from one more day of IV steroids. 1. Asthma exacerbation * Admitted to the general medical floor * Continue IV Solu-Medrol 40 mg BID * TRC and DuoNeb treatments * Measure peak flow qshift: last 250 * Supplemental oxygen as needed * Pulmonology is following * Conitnue montelukast and claritin * Montior vitals qshift * Check fingerstick now and BID DVT PPx: Lovenox Diet: Regular diet Code: Full code Dispo: discharge home tomorrow if she remains stable Problem List: 1. Asthma exacerbation Pain Ratin Pain Location: n/a Pain Goal: Remain pain free Pain Plan: prn Tomorrow's Labs & Rationales: none Myrtle Mai MD 12/04/17 1306: Attending MD Review Statement Attending Statement Attending MD Statement: examined this patient, discuss w/resident/PA/SCIENTIFIC PROGRAMMER ANALYST, agreed w/resident/PA/SCIENTIFIC PROGRAMMER ANALYST, reviewed EMR data (avail), discussed with nursing, discussed with case mgmt, amended to note Attending Assessment/Plan: Patient was seen and examined during rounds this morning. She reports feeling better I was looking forward to be discharged home today. On examination she had diminished breath sounds bilaterally with no significant wheezing. She ambulated around the unit unassisted but then started to complain of lightheadedness and worsening shortness of breath. Peak flow rate yesterday after treatment was 260. Peak flow rate after treatment today is 250. She was evaluated by her journeyman electrician and decision was made to keep the patient in the hospital for another 24 hours continuing bronchodilator treatment and systemic steroid therapy. If she feels improved tomorrow she may be discharged home with outpatient follow-up. Continue current dose of Solu-Medrol for now. Recommend checking a random fingersticks level once a day while she is on intravenous steroid therapy.
[2017-12-04] MEDS ORDERED: ALLEGRA ALLERG180 M1 PO (09:46)
[2017-12-04] MEDS ORDERED: PREDNISONE10 M2 PO (09:46)
[2017-12-04] MEDS ORDERED: MONTELUKAST SOD10 M1 PO (10:38)
--- NOTE | 2017-12-04 11:50 | PN- Pulmonary ---
Subjective HPI/Critical Care Issues: pt seen and examined ambulated - felt lighheaded and worsened wheezing afebrile not feeling ready for dc Objective Current Medications: Current Medications Sig/Stephen Start time Last Medication Dose Route Stop Time Status Admin Acetaminophen 650 MG Q6P PRN 12/02 1600 AC PO Albuterol Sulfate 3 ML EVERY 4 HRS/AWAKE 12/02 2000 AC 12/04 INH 1135 Albuterol Sulfate 3 ML Q4H PRN 12/02 1800 AC INH Enoxaparin Sodium 40 MG DAILY 12/03 0900 AC 12/04 SC 0837 Loratadine 10 MG DAILY 12/03 1645 AC 12/04 PO 0837 Methylprednisolone 40 MG Q12 12/03 0900 AC 12/04 IV 0837 Montelukast Sodium 10 MG AT BEDTIME 12/03 2100 AC 12/03 PO 2043 Patient Medication 1 ED ONE ONE 12/04 1145 DC Teaching ED 12/04 1146 Patient Medication 1 ED ONE ONE 12/03 1630 DC 12/03 Teaching ED 12/03 1631 1846 Vital Signs & I&O Last 24 Hrs of Vitals and I&O: Vital Signs Date Time Temp Pulse Resp B/P B/P Pulse O2 O2 Flow FiO2 Mean Ox Delivery Rate 12/04 1142 98 Room Air 12/04 0800 96 Room Air 12/04 0652 98.0 63 18 124/68 96 12/04 0637 99 Room Air 12/04 0000 97 Room Air 12/03 2148 98.0 73 16 124/70 100 Room Air 12/03 1810 97 Room Air 12/03 1600 98 Room Air 12/03 1400 98.4 74 20 122/72 99 Room Air Intake & Output 12/04 1600 12/04 0800 12/04 0000 Intake Total 480 480 Output Total Balance 480 480 Intake, Oral 480 480 Exam Other Physical Findings: gen-aaox3 h/n-ncat cvs-s1,s2 lungs-bilateral wheezing inspiratory and expiratory IMPROVED abd-soft,bs+ ext-without edema Results Last 24 Hrs of Lab Results: Laboratory Tests 12/04/17 0719: Anion Gap 9, Estimated GFR > 60, BUN/Creatinine Ratio 23.3, Magnesium 2.0 Impression/Plan Impression/Plan Impression/Plan: Impression 56 year old woman * exacerbation of reactive airways disease/asthma likely secondary to seasonal allergies Plan -TRC/Nebs -continue steroids -observe for another day given lightheadedness and pt feels not ready for dc -monitor peak flow -singulair and anti-histamine DVT prophylaxis at all times
[2017-12-04 14:15] VITALS: BP 130/70
[2017-12-04 21:31] VITALS: BP 110/70
[2017-12-05 06:55] VITALS: BP 125/84
--- NOTE | 2017-12-05 07:07 | PN- Housestaff ---
Refugio HAMMONDS,Keiko 12/05/17 0707: Subjective Follow-up For: Asthma Exacerbation Subjective: Patient was seen and examined. Reports symptoms have improved. Patient walked around the floor today without any lightheadedness. Reports continued nonproductive cough. Patient states she is ready to go home today. No acute events overnight. Review of Systems Constitutional: Reports: see HPI. Objective Last 24 Hrs of Vital Signs/I&O Vital Signs Date Time Temp Pulse Resp B/P B/P Pulse O2 O2 Flow FiO2 Mean Ox Delivery Rate 12/05 0808 96 Room Air 12/05 0800 99 Room Air 12/05 0655 97.9 64 18 125/84 99 Room Air 12/05 0000 Room Air Intake & Output 12/05 1600 12/05 0800 12/05 0000 Intake Total 480 480 Output Total Balance 480 480 Intake, Oral 480 480 Physical Exam General Appearance: Alert, Oriented X3, Cooperative, No Acute Distress Skin: No Rashes Skin Temp/Moisture Exam: Warm/Dry HEENT: Atraumatic, Mucous Membr. moist/pink Cardiovascular: Regular Rate, Normal S1, Normal S2 Lungs: bilateral scattered expiratory wheezing - improved from previous day Abdomen: Normal Bowel Sounds, Soft, No Tenderness Extremities: No Clubbing, No Cyanosis, No Edema, Normal Pulses, No Tenderness/ Swelling Current Medications: Current Medications Sig/Stephen Start time Last Medication Dose Route Stop Time Status Admin Acetaminophen 650 MG Q6P PRN 12/02 1600 DCD PO Albuterol Sulfate 3 ML EVERY 4 HRS/AWAKE 12/02 2000 DCD 12/05 INH 0803 Albuterol Sulfate 3 ML Q4H PRN 12/02 1800 DCD INH Enoxaparin Sodium 40 MG DAILY 12/03 0900 DCD 12/05 SC 0834 Loratadine 10 MG DAILY 12/03 1645 DCD 12/05 PO 0834 Methylprednisolone 40 MG Q12 12/03 0900 DCD 12/05 IV 0834 Montelukast Sodium 10 MG AT BEDTIME 12/03 2100 DCD 12/04 PO 2049 Assessment/Plan Assessment: Patient is a 56-year-old female, former smoker, with past medical history significant for asthma presenting this admission continues to asthma exacerbation not responding to multiple nebulizer treatments and oral prednisone. Despite receiving multiple respiratory treatments and oral steroid at a walk-in clinic and en route to [facility], prior to presenting to the [facility] ED, patient continues to remain short of breath with significant chest tightness and decreased air entry bilaterally on examination. Patient over the recent few weeks has required more frequent use of her short-acting bronchodilator and is currently also on an inhaled corticosteroid/long-acting broncho-dilator combination. It is unclear what triggered this asthma exacerbation. Patient remains afebrile with normal WBC, CXR shows no signs of infection. Patient denies any known allergies or environmental triggers. Patient is currently saturating well on room air and stable enough for admission to the general medical floor. Patient was treated for an asthma exacerbation with IV Solu-Medrol, TRC/DuoNeb treatments and was evaluated by her laser set up operator, Dr. Millard and was started on montelukast and an anti-histamine agent. Patient's symptoms today have significantly improved and patient is stable for discharge. Patient was sent home on a slow steroid taper, montelukast and beni. Patient is to continue her inhalers and nebulizer treatments as needed. Patient was concerned about her B12 level due to significant neuropathy. Patient 's B12 level was 855. Problem List: 1. Asthma exacerbation Pain Ratin Pain Location: n/a Pain Goal: Remain pain free Pain Plan: prn Tomorrow's Labs & Rationales: none - stable for discharge today Myrtle Mai MD 12/05/17 1140: Attending MD Review Statement Attending Statement Attending MD Statement: examined this patient, discuss w/resident/PA/SENIOR BIOSTATISTICIAN, agreed w/resident/PA/SENIOR BIOSTATISTICIAN, reviewed EMR data (avail), discussed with nursing, discussed with case mgmt, amended to note Attending Assessment/Plan: Patient seen and examined. No issues overnight reported by nursing staff. Remains afebrile and hemodynamically stable. Resting comfortably and not in any acute distress. She reports feeling significantly better this morning. Her peak flow rates have also improved significantly this morning. On examination she has much better air entry bilaterally with mild expiratory wheezing. She is certainly medically stable to be discharged home today and she is willing to go home. She will be following up with her laser set up operator as an outpatient.
[2017-12-05] MEDS ORDERED: PREDNISONE10 M2 PO ×2 (09:18→10:45)
[2017-12-05] MEDS ORDERED: MONTELUKAST SOD10 M1 PO (09:18)
[2017-12-05] MEDS ORDERED: ALLEGRA ALLERG180 M1 PO (09:18)
--- NOTE | 2017-12-05 11:42 | PN- Pulmonary ---
Subjective HPI/Critical Care Issues: pt seen and examined feeling well dc today Objective Current Medications: Current Medications Sig/Stephen Start time Last Medication Dose Route Stop Time Status Admin Acetaminophen 650 MG Q6P PRN 12/02 1600 DCD PO Albuterol Sulfate 3 ML EVERY 4 HRS/AWAKE 12/02 2000 DCD 12/05 INH 0803 Albuterol Sulfate 3 ML Q4H PRN 12/02 1800 DCD INH Enoxaparin Sodium 40 MG DAILY 12/03 0900 DCD 12/05 SC 0834 Loratadine 10 MG DAILY 12/03 1645 DCD 12/05 PO 0834 Methylprednisolone 40 MG Q12 12/03 0900 DCD 12/05 IV 0834 Montelukast Sodium 10 MG AT BEDTIME 12/03 2100 DCD 12/04 PO 2049 Patient Medication 1 ED ONE ONE 12/04 1145 DC Teaching ED 12/04 1146 Vital Signs & I&O Last 24 Hrs of Vitals and I&O: Vital Signs Date Time Temp Pulse Resp B/P B/P Pulse O2 O2 Flow FiO2 Mean Ox Delivery Rate 12/05 0808 96 Room Air 12/05 0800 99 Room Air 12/05 0655 97.9 64 18 125/84 99 Room Air 12/05 0000 Room Air 12/04 2131 98.3 61 16 110/70 97 Room Air 12/04 1615 98 Room Air 12/04 1415 98.6 66 20 130/70 96 Room Air Intake & Output 12/05 1600 12/05 0800 12/05 0000 Intake Total 480 480 Output Total Balance 480 480 Intake, Oral 480 480 Exam Other Physical Findings: gen-aaox3 h/n-ncat cvs-s1,s2 lungs-bilateral wheezing inspiratory and expiratory IMPROVED abd-soft,bs+ ext-without edema Impression/Plan Impression/Plan Impression/Plan: Impression 56 year old woman * exacerbation of reactive airways disease/asthma likely secondary to seasonal allergies Plan -TRC/Nebs -steroids taper -singulair and anti-histamine DC today DVT prophylaxis at all times
--- NOTE | 2017-12-05 22:55 | Discharge Summary ---
Visit Information Visit Dates Admission Date: 12/02/17 Discharge Date: 12/05/17 Hospital Course Course Attending Physician: Myrtle Mai MD Primary Care Physician: Hammad Yepez MD Hospital Course: Patient is a 56-year-old female, former smoker, with past medical history significant for asthma presenting this admission continues to asthma exacerbation not responding to multiple nebulizer treatments and oral prednisone. Despite receiving multiple respiratory treatments and oral steroid at a walk-in clinic and en route to [facility], prior to presenting to the [facility], patient continues to remain short of breath with significant chest tightness and decreased air entry bilaterally on examination. Patient over the recent few weeks has required more frequent use of her short-acting bronchodilator and is currently also on an inhaled corticosteroid/long-acting broncho-dilator combination. It is unclear what triggered this asthma exacerbation. Patient remains afebrile with normal WBC, CXR shows no signs of infection. Patient denies any known allergies or environmental triggers. Patient is currently saturating well on room air and stable enough for admission to the general medical floor. Patient was treated for an asthma exacerbation with IV Solu-Medrol, TRC/DuoNeb treatments and was evaluated by her rag room supervisor, Dr. Millard and was started on montelukast and an anti-histamine agent. Patient's symptoms significantly improved prior to discharge. Patient was sent home on a slow steroid taper, montelukast and beni. Patient is to continue her inhalers and nebulizer treatments as needed. Patient was concerned about her B12 level due to significant neuropathy. Patient 's B12 level was 855. Allergies: Coded Allergies: No Known Allergies (12/01/16) Pertinent Lab Results: SERVICE DATE: 12/02/17-1249 EXAM TYPE: RAD - XRY-CHEST XRAY, TWO VIEWS EXAMINATION: XR CHEST CLINICAL INFORMATION: Shortness of breath pneumonia COMPARISON: July 2017 TECHNIQUE: 2 views of the chest were obtained. FINDINGS: Mild increased interstitial lung markings chronic unchanged, no focal consolidation. No pleural effusion or pneumothorax. Heart is normal in size. No failure. No pneumothorax. IMPRESSION: No radiographic evidence of acute cardiopulmonary disease. Disposition Summary Disposition Principal Diagnosis: Asthma Exacerbation Additional Diagnosis: History of B12 deficiency Discharge Disposition: home or self care Discharge Instructions General Discharge Information Code Status: Full Code Patient's Diet: Regular diet Patient's Activity: Self-limited Follow-Up Instructions/Appts: 1. Follow up with your pcp and rag room supervisor within 1 week of discharge 2. Take medications as prescribed Medications at Discharge Discharge Medications: Continue taking these medications: Albuterol Sulfate (Ventolin Hfa) 90 MCG HFA.AER.AD 90 Microgram INHALATION 4 times daily as needed Qty = 18 Comments: NOT GIVEN IN HOSPITAL Fluticasone/Vilanterol (Breo Ellipta 100-25 Mcg INH) 100 MCG-25 MCG/DOSE BLST.W.DEV 1 PUFF ORAL DAILY Comments: NOT GIVEN IN HOSPITAL Start taking the following new medications: Montelukast Sodium (Montelukast Sodium) 10 MG TABLET 1 Tablet ORAL AT BEDTIME Qty = 30 No Refills Comments: Last Taken: 12/04/17 Time: 2049PM Fexofenadine HCl (Beni Allergy) 180 MG TABLET 180 Milligram ORAL DAILY Qty = 30 No Refills Comments: NOT GIVEN IN HOSPITAL Prednisone (Prednisone) 10 MG TABLET 1 Tablet ORAL TWICE DAILY Qty = 10 No Refills Instructions: 12/06 - 12/07 4 tabs 12/08-- 3 tabs 12/11-12/13 2 tabs 12/14-12/16 1 tab then stop Comments: NOT GIVEN IN HOSPITAL Copies To: Marleni HAMMONDS,Sal Gutierrez
== END 2017-12-05 11:31 | DRG 203 ==
LOC: ERH 12:26 → ERHI 15:24 → 2NB 15:24 → ENRESERV 16:13 → ENTRNSPT 16:35 → EDTRNSPTSTS 16:49 → EDTRNSPT 16:49 → 2NB 16:59 → CMPTRNSPT 17:06 → 2NB 12-03 10:21 → ENPENDDIS 12-05 10:06 → 2NB 12-05 11:31
PROVIDERS: Emergency Medicine; Hospitalist
DX: J45.901 Unspecified asthma with (acute) exacerbation (principal); J30.2 Other seasonal allergic rhinitis; Z79.51 Long term (current) use of inhaled steroids; Z79.52 Long term (current) use of systemic steroids; Z98.1 Arthrodesis status; Z90.710 Acquired absence of both cervix and uterus
CPT/HCPCS: 36592; 71046; 82436; 93005; 93010; 94644; 94645; 96374; 99291; J1650; J2920; J2930